=== PATIENT | male | born 1975 | race Caucasian/White ===

== ENCOUNTER 2018-08-04 08:20 | Inpatient (IN) | payer OTHER ==
[~2018-08-04] VITALS: Ht 167.6 cm; Wt 114.0 kg
[~2018-08-04 08:20] MED LIST: ACYC400 PO; CEPH500 PO; CLOM50A; CLON1; CODACE30 PO; CYCL10 PO; Cleocin HCl300 MG PO; DIAZ5 PO; DIVA250EC; DIVA250ER; DIVA500ER; DOCU100 PO; DULO30; Doxycycline Hy100 MG PO; ENAL20 PO; ESCI10; ESCI20; ESCI5; EXCEDRINE; GENT.3OPSA OD; HYDACE10B PO; HYDACE5 PO; HYDACE7.5 PO; HYDCHL25 PO; IBUP200; IBUP600 PO; IBUP800 PO; LEXAPRO; LISI20 PO; LORA1 PO; META800 PO; METO50 PO; MIRT15; NAPR220 PO; NAPR500 PO; NAPR550 PO; Naprosyn500 MG PO; OLME20 PO; OMEP10ER PO; ONDA4 PO; OXYACE10; OXYACE5T PO; OXYACE7.5T PO; POLY17UD PO; POTCHL20ER PO; PROACE100 PO; PROM25 PO; PROP80ER PO; Percocet 5-3251 EACH PO; Prednisone50 MG PO; QUET100; QUET200; QUET25; RXCODACET PO; RXHYDACE PO; RXTRAM50 PO; Robaxin-750750 MG PO; SACC250C PO; SERT25; SERT50; SULTRIDS PO; TRAM50; TRAM50 PO; Veetids 500500 MG PO; [UNRECOGNIZED DRUG - OTHER]
[2018-08-04 09:14] LABS: BASOPHILS ABSOLUTE AUTO 0.02 K/mm3 (0.00-0.23); BASOPHILS PERCENT AUTO 1 % (0-2); EOSINOPHILS ABSOLUTE AUTO 0.03 K/mm3 (0.00-0.68); EOSINOPHILS PERCENT AUTO 1 % (0-6); Hematocrit 41.7 % (37.0-53.0); Hemoglobin 14.6 g/dL (13.5-17.5); IMMATURE GRAN ABSOLUTE AUTO 0.02 K/mm3 (0.00-0.10); IMMATURE GRAN PERCENT AUTO 1 % (0-1); LYMPHOCYTES ABSOLUTE AUTO 0.27 K/mm3 (0.84-5.20); LYMPHOCYTES PERCENT AUTO 7 % (21-46); MONOCYTES ABSOLUTE AUTO 0.28 K/mm3 (0.16-1.47); MONOCYTES PERCENT AUTO 8 % (4-13); Mean Corpuscular HGB 34.2 pg (26.0-34.0); Mean Corpuscular Volume 98 fL (80-100); Mean Platelet Volume 10.3 fL (9.1-12.4); NEUTROPHILS ABSOLUTE AUTO 3.12 K/mm3 (1.96-9.15); NEUTROPHILS PERCENT AUTO 84 % (41-73); Platelet Count 146 K/mm3 (150-400); RDW Coefficient Variation 12.2 % (11.7-14.2); Red Blood Cell Count 4.27 M/mm3 (4.30-5.90); White Blood Cell Count 3.74 K/mm3 (4.00-11.30)
[2018-08-04 09:26] LABS: International Normalized Ratio 1.03; Prothrombin Time Results 10.9 Sec (9.7-11.5)
[2018-08-04 09:34] LABS: Alanine Aminotransfer (ALT/SGP 41 U/L (12-78); Albumin, Blood 4.3 g/dL (3.4-5.0); Albumin/Globulin Ratio 1.4 (0.8-1.8); Alk Phos 58 U/L (50-136); Anion Gap 7 mmol/L (6-16); Aspartate Aminotrans (AST/SGOT 35 U/L (12-37); Bilirubin, Total 0.5 mg/dL (0.1-1.0); Blood Urea Nitrogen 18 mg/dL (8-24); Bun/Creatinine Ratio 19.7 (12.0-20.0); CO2, Blood 28 mmol/L (21-32); Calcium, Blood 8.6 mg/dL (8.5-10.1); Chloride, Blood 106 mmol/L (98-108); Creatinine, Blood 0.91 mg/dL (0.60-1.20); Globulin, Blood 3.1 g/dL (2.2-4.0); Glomerular Filtration Rate >60 (60-); Glucose, Blood 98 mg/dL (70-99); Potassium, Blood 3.7 mmol/L (3.5-5.5); Sodium, Blood 141 mmol/L (136-145); Total Protein, Blood 7.4 g/dL (6.4-8.2); Troponin I 0.098 ng/mL (0.000-0.040)
[2018-08-04] MEDS ORDERED: ASPI325EC PO (12:36)
[2018-08-04 13:59] LABS: Troponin I 0.109 ng/mL (0.000-0.040)
[2018-08-04 14:00] LABS: International Normalized Ratio 1.02; Prothrombin Time Results 10.8 Sec (9.7-11.5); Thyroid Stimulating Hormone 0.94 uIU/mL (0.360-4.800)
--- NOTE | 2018-08-04 14:42 | NUR ---
PT ADMITTED PT ADMITTED AT 1320. PT IN STABLE CONDITION. PT TACHYCARDIC & HYPERTENSIVE. TEMP OF 101. DR. JITRATE NOTIFIED. LR BOLUS STARTED. PT TOLERATING WELL. PT ORIENTED TO ROOM. CALL LIGHT IN REACH. WILL CONTINUE TO MONITOR UNTIL TURNOVER IS COMPLETE.
[2018-08-04 17:44] LABS: Influenza A/2009-H1 Detected (NOT DETECT)
[2018-08-04 17:45] LABS: Adenovirus Not Detected (NOT DETECT); Bordetella pertussis Not Detected (NOT DETECT); Chlamydophila pneumoniae Not Detected (NOT DETECT); Coronavirus 229E Not Detected (NOT DETECT); Coronavirus HKU1 Not Detected (NOT DETECT); Coronavirus NL63 Not Detected (NOT DETECT); Coronavirus OC43 Not Detected (NOT DETECT); Human Metapneumovirus Not Detected (NOT DETECT); Human Rhinovirus/Enterovirus Not Detected (NOT DETECT); Influenza A Not Detected (NOT DETECT); Influenza A/H1 Not Detected (NOT DETECT); Influenza A/H3 Not Detected (NOT DETECT); Influenza B Not Detected (NOT DETECT); Mycoplasma pneumoniae Not Detected (NOT DETECT); Parainfluenza Virus 1 Not Detected (NOT DETECT); Parainfluenza Virus 2 Not Detected (NOT DETECT); Parainfluenza Virus 3 Not Detected (NOT DETECT); Parainfluenza Virus 4 Not Detected (NOT DETECT); Respiratory Syncytial Virus Not Detected (NOT DETECT)
--- NOTE | 2018-08-04 18:04 | NUR ---
SHIFT SUMMARY NO CHANGES IN ASSESSMENT AT THIS TIME. PT CONTINUES TO HAVE A HEADACHE. TREATED PER EMAR. PT ON HIS FOURTH BOLUS OF LR. TOLERATING WELL. PT HR DECREASED TO THE 110S. LOW GRADE FEVER OF REMAINS. OTHER VITALS STABLE. WILL CONTINUE TO MONITOR UNTIL TURNOVER IS COMPLETE
--- NOTE | 2018-08-04 20:08 | NUR ---
PT REPORTS HAVING THROBBING PAIN TO THE R SIDE OF HEAD, ASSOCIATED c N/T TO R SIDE OF BODY. PAIN IS 10/10, PT IS TEARFUL. PT REPORTS THESE S/SX HAVE BEEN GOING ON X2 MONTHS. 1 MG MORPHINE IV HELPS FOR ABOUT 30 MINS AND THEN PT IS TEARFUL AGAIN. PUPILS PERRLA. NO R SIDE MOTOR DEFICITS. CT OF HEAD HAS NOT BE DONE. PT IS ALSO COUGHING UP BLOOD AND HAVING EPITAXIS. CALLED HOSPITALIST TO REPORT FINDINGS. HOSPITALIST DOES NOT ORDER HEAD CT, STATES ATTENDING PHYSICIAN TO DO THAT. REPORTS HE WILL ADJUST MEDS, SEE EMAR.
--- NOTE | 2018-08-04 23:04 | NUR ---
TELE EVENT PT c MORE PVC'S AND TACHY IN THE 120s. DR AWARE. WILL CONT TO MONITOR. PT ASYMPTOMATIC AT THIS TIME.
--- NOTE | 2018-08-04 23:15 | NUR ---
UPDATE VITALS ARE 101.4, HR 119, RR 16, 170/129, 96% ON RA AFTER ADMINISITERING NAPROXEN, ACETAMINOPHEN, AND HYDRALAZINE. UPDATED BAUER ON PT STATUS. ORDERED HYDRALAZINE 10MG IV PRN Q2H FOR SYSTOLIC >160, SCHEDULED ACETAMINOPHEN Q4H, AND D/C MAINTENANCE LR. WILL CONT TO MONITOR.
--- NOTE | 2018-08-05 06:47 | NUR ---
SHIFT SUMMARY: PT HAS FELT VERY POORLY TONIGHT. C/O PAIN TO R SIDE OF HEAD, BEHIND THE EAR. RATES 10/10, TEARFUL AT TIMES. HOSPITALIST CALLED AND AWARE, ORDERED 1X DOSE OF OXYCONTIN WHICH PROVIDED RELIEF. PT HAS HAD FEVER CONSISTENTLY TONIGHT, RANGING FROM 99 - 102. TYLENOL ORDERED Q4H, SCHEDULED. FLUIDS D/C'd IN HOPES TO LOWER BP. HYDRALAZINE ADMINISTERED PRN. BP SLIGHTLY IMPROVED, THIS AM BEING AT 151/117. HAS 1 EPISODE OF EPITAXIS, RELIEVED WITH PRESSURE AND ICE PACKS. NO OTHER CHANGES TO REPORT. WILL CONT TO MONITOR AND PROVIDE CARE UNTIL PRESUMED BY ONCOMING RN.
[2018-08-05 08:13] LABS: Hematocrit 39.7 % (37.0-53.0); Hemoglobin 13.7 g/dL (13.5-17.5); Mean Corpuscular HGB 33.9 pg (26.0-34.0); Mean Corpuscular HGB Conc 34.5 g/dL (31.5-36.5); Mean Corpuscular Volume 98 fL (80-100); Mean Platelet Volume 11.2 fL (9.1-12.4); Platelet Count 118 K/mm3 (150-400); RDW Coefficient Variation 12.3 % (11.7-14.2); RDW Standard Deviation 44.6 fL (35.1-46.3); Red Blood Cell Count 4.04 M/mm3 (4.30-5.90)
[2018-08-05 08:24] LABS: Anion Gap 9 mmol/L (6-16); Blood Urea Nitrogen 11 mg/dL (8-24); Bun/Creatinine Ratio 12.2 (12.0-20.0); CO2, Blood 27 mmol/L (21-32); Calcium, Blood 8.2 mg/dL (8.5-10.1); Chloride, Blood 104 mmol/L (98-108); Glomerular Filtration Rate >60 (60-); Glucose, Blood 99 mg/dL (70-99); Potassium, Blood 3.3 mmol/L (3.5-5.5); Sodium, Blood 140 mmol/L (136-145)
[2018-08-05 08:55] LABS: BAND PERCENT MAN 3 % (0-8); BASOPHILS PERCENT MAN 0 % (0-2); EOSINOPHILS PERCENT MAN 0 % (0-6); LYMPHOCYTES ABSOLUTE MAN 0.41 K/mm3 (0.84-5.20); LYMPHOCYTES PERCENT MAN 9 % (21-46); MONOCYTES ABSOLUTE MAN 0.09 K/mm3 (0.16-1.47); MONOCYTES PERCENT MAN 2 % (4-13); NEUTROPHILS ABSOLUTE MAN 4.09 K/mm3 (1.96-9.15); SEG NEUTROPHILS PERCENT MAN 86 % (41-73); TOTAL CELLS COUNTED 100
--- NOTE | 2018-08-05 09:15 | NUR ---
PT CALLED FOR A BEEPING IV PUMP. WHEN STAFF ENTERED THE ROOM THE PT WAS RED FACED AND IN TEARS, STATED 10/10 PAIN ON THE WHOLE RIGHT SIDE OF HIS HEAD AND BODY. NO N/T CURRENTLY, NO C/O N/V. WILL MEDICATE WITH SCHEDULED TYLENOL AND NOTIFY
--- NOTE | 2018-08-05 14:37 | NUR ---
PT CHEST PAIN- PT BP WAS ELEVATED THIS MORNING ON RECHECK IT WAS HIGHER DR PICHARDO, PT MEDICATED WITH IV HYDRALIZINE, RECHECK FOR BP WAS HIGHER MEDICATED WITH PRN HYDRALIZINE. AT THE ONE HOUR RECHECK PT WAS SITTING AT THE EOB, TRAVEL ACCOMMODATION INSPECTOR VIOLETTA CALLED AND PT WAS IN BIGEMINAL PVC'S AT A RATE OF 133. FULL SET OF VITALS OBTAINED, DR RUELAS NOTIFIED, PT BEGAN DRY HEAVING, SITTING AT THE EOB, DIAPHORETIC, FLUSHED AND HOT TO TOUCH. PROVIDED COOL CLOTHS, WASHED PT FACE WITH COOL CLOTH, PT STATED HIS CHEST WAS HURTING 10/12, [facility] ARRIVED TO TAKE THE PT TO THE MANUSCRIPT EDITOR. VIEW SCORE WAS A 4 D/T ELEVATED HR AND RESP RATE OF 20. HEART CENTER RN CALLED BIOLOGICAL LAB TECHNICIAN. OK TO BRING THE PT TO THE HEART CENTER NOW. PT POTASSIUM WAS 3.3 THIS MORNING IV REPLACEMENT ORDERED PT WAS LEAVING MEDICAL FLOOR. PT WILL TRANSFER TO PCU AFTER THE HEART CENTER HAS COMPLETED PROCEDURE. PT WAS TAKEN BY HEART CENTER RNS VIA W/C PT NO LONGER DIAPHORETIC AND FLUSHING SEEMED TO BE LESSENED AT THE TIME THE PT LEFT FOR THE MANUSCRIPT EDITOR. CHEST PAIN WAS IMPROVING (PER PT) PER TELE BIGEMINAL PVCS AT 127 AT THE TIME OF PT TRANSFER TO THE WHEELCHAIR.
--- NOTE | 2018-08-05 16:00 | NUR ---
pt arrived to pcu 1 via gurney from the heart center, he has a tr band in place to [facility], site is clear. vs stable. he states he has a h/a, other rodriguez doing ok. he also reports numbness on the right side and some weakness, but is rather vague, asked him if he sought medical care, he reports coming to the ed twice. spoke with Dr. Urias, he ordered a CT scan of his head. call light in reach.
--- NOTE | 2018-08-05 16:03 | NUR ---
CALLED JAMIE YANEZ AND GAVE TELEPHONE REPORT FOR PT TRANSFER TO [facility]. PT STILL IN THE BRANCH OPERATIONS SPECIALIST, REPORT GIVEN SHE WILL CALL IF FURTHER QUESTIONS ARRISE.
--- NOTE | 2018-08-05 19:05 | NUR ---
pt went down for ct scan, medicated for pain in his head. tr band looks good. no further changes. call light in reach.
[2018-08-06 03:54] LABS: BASOPHILS ABSOLUTE AUTO 0.02 K/mm3 (0.00-0.23); BASOPHILS PERCENT AUTO 1 % (0-2); EOSINOPHILS PERCENT AUTO 0 % (0-6); Hematocrit 39.8 % (37.0-53.0); Hemoglobin 13.8 g/dL (13.5-17.5); Mean Corpuscular HGB 33.9 pg (26.0-34.0); Mean Corpuscular HGB Conc 34.7 g/dL (31.5-36.5); Mean Corpuscular Volume 98 fL (80-100); Mean Platelet Volume 10.6 fL (9.1-12.4); Platelet Count 124 K/mm3 (150-400); RDW Coefficient Variation 12.3 % (11.7-14.2); RDW Standard Deviation 44.6 fL (35.1-46.3); Red Blood Cell Count 4.07 M/mm3 (4.30-5.90)
[2018-08-06 03:57] LABS: IMMATURE GRAN ABSOLUTE AUTO 0.02 K/mm3 (0.00-0.10); IMMATURE GRAN PERCENT AUTO 1 % (0-1); LYMPHOCYTES ABSOLUTE AUTO 0.61 K/mm3 (0.84-5.20); LYMPHOCYTES PERCENT AUTO 19 % (21-46); MONOCYTES ABSOLUTE AUTO 0.16 K/mm3 (0.16-1.47); MONOCYTES PERCENT AUTO 5 % (4-13); NEUTROPHILS ABSOLUTE AUTO 2.49 K/mm3 (1.96-9.15); NEUTROPHILS PERCENT AUTO 76 % (41-73)
[2018-08-06 04:08] LABS: Anion Gap 10 mmol/L (6-16); Blood Urea Nitrogen 15 mg/dL (8-24); Bun/Creatinine Ratio 18.5 (12.0-20.0); CO2, Blood 25 mmol/L (21-32); Calcium, Blood 8.1 mg/dL (8.5-10.1); Chloride, Blood 105 mmol/L (98-108); Creatinine, Blood 0.81 mg/dL (0.60-1.20); Glomerular Filtration Rate >60 (60-); Glucose, Blood 93 mg/dL (70-99); Potassium, Blood 3.2 mmol/L (3.5-5.5); Sodium, Blood 140 mmol/L (136-145)
--- NOTE | 2018-08-06 06:32 | NUR ---
PCU NOC SHIFT SUMMARY PATIENT REMAINS ALERT AND ORIENTED X4. INDEPENDANT IN ROOM. RIGHT RADIAL SIDE RECOVERED WITH BRUISING NOTED - TEGADERM DRESSING IN PLACE AND ARM BOARD LEFT IN PLACE. PATIENT REPORTED CHRONIC ON GOING HEADACHE AND RIGHT LOWER LEG PAIN T/O SHIFT. PATIENT URINATING WELL IN TOILET (REFUSING TO USE URINAL) AND HAD NORMAL BOWEL MOVEMENT PER HIM. NO ACUTE CHANGE T/O SHIFT. PATIENT TO HAVE AORTIC VALVE REPLACEMENT UP [facility]. PATIENTS CALL LIGHT W/I REACH - DENIES ANY NEEDS AT THIS TIME. WILL CONTINUE TO MONITOR AND GIVE REPORT TO RADHA RN.
--- NOTE | 2018-08-06 08:09 | NUR ---
ASSUMEED CARE OF PT AT 0700. PT LYING IN BED WATCHING TV. PT ALERT AND ORIENTED 4X. PT STATES PAIN, NUMBNESS/TINGLING ON RIGHT SIDE WITH A R SIDED HEADACHE. STATES MEDICATION HELPS THE PAIN. PT ABLE TO SIT ON SIDE OF BED THEMSELVES. LUNG SOUNDS DIMINISHED; CRACKLES AT BASES. DENIES DYSPNEA. HEART SOUNDS IRREGUALR. IN SINUS RHYTHMN AVERAGING IN THE 80. ABDOMEN HARD AND DISTENDED. PT STATES ITS NORMAL. PERIHERAL PULSES STRONG. PT STATES THEY ARE FEELING BETTER THAN YESTERDAY BUT IS STILL HAVING PAIN. WILL CONTINUE TO MONITOR. CALL LIGHT IN REACH; BED IN LOWEST POSITION.
[2018-08-06 09:35] LABS: Vancomycin, Trough 13.5 ug/mL (5.0-10.0)
--- NOTE | 2018-08-06 13:35 | NUR ---
NURSING PCU COBRA XFER SUMMARY: No acute changes noted t/o the a.m. Seen by PMD and cardiology, discussed plan to xfer to [facility] for cardiac surgery assessment re valve replacement. Accepting doctor and bed assignment received. EMS transport scheduled for 1330, awaiting EMS arrival at this time. Pt denies any questions/needs, SN provided telephone report to accepting SN. Cont to monitor until discharge is complete.
== END 2018-08-06 13:53 | disposition short-term general hospital (02) | DRG 871 ==
LOC: ER 08:20 → MEDS 11:57 → PCU 08-05 14:12
PROVIDERS: Emergency Medicine; ADMIT Family Medicine
PROC: 4A023N7 Measurement of Cardiac Sampling and Pressure, Left Heart, Percutaneous Approach (ICD-10-PCS; principal; 2018-08-05)
PROC: B211YZZ Fluoroscopy of Multiple Coronary Arteries using Other Contrast (ICD-10-PCS; 2018-08-05)
DX: A41.9 Sepsis, unspecified organism (principal); J09.X1 Influenza due to identified novel influenza A virus with pneumonia; Z68.41 Body mass index [BMI] 40.0-44.9, adult; R65.20 Severe sepsis without septic shock; F41.8 Other specified anxiety disorders; R79.89 Other specified abnormal findings of blood chemistry; I10 Essential (primary) hypertension; E66.9 Obesity, unspecified; I35.0 Nonrheumatic aortic (valve) stenosis; E66.01 Morbid (severe) obesity due to excess calories; K59.09 Other constipation; Z85.038 Personal history of other malignant neoplasm of large intestine; I73.9 Peripheral vascular disease, unspecified
CPT/HCPCS: 36415; 70450; 71046; 71260; 80048; 80053; 80202; 83605; 84145; 84443; 84484; 85025; 85610; 85730; 86850; 86900; 86901; 87486; 87581; 87633; 87798; 93005; 93010; 93306; 93312; 93325; 93458; 93925; 93971; 96361; 96365-59; 96375-59; 99152; 99153; 99285-25; C1769; C1894; J0360; J0696; J1644; J1885; J1956; J2250; J2270; J3010; J3370; J7030; J7040; J7050; J7120; Q9967

== ENCOUNTER 2018-08-17 06:55 | Emergency (ER) | payer OTHER ==
[~2018-08-17] VITALS: Ht 175.3 cm; Wt 113.4 kg
[~2018-08-17 06:55] MED LIST changes: +ASPI325EC PO
[2018-08-17 07:47] LABS: BASOPHILS ABSOLUTE AUTO 0.04 K/mm3 (0.00-0.23); BASOPHILS PERCENT AUTO 1 % (0-2); EOSINOPHILS ABSOLUTE AUTO 0.04 K/mm3 (0.00-0.68); EOSINOPHILS PERCENT AUTO 1 % (0-6); Hemoglobin 15.7 g/dL (13.5-17.5); IMMATURE GRAN ABSOLUTE AUTO 0.01 K/mm3 (0.00-0.10); IMMATURE GRAN PERCENT AUTO 0 % (0-1); LYMPHOCYTES ABSOLUTE AUTO 1.44 K/mm3 (0.84-5.20); LYMPHOCYTES PERCENT AUTO 26 % (21-46); MONOCYTES ABSOLUTE AUTO 0.52 K/mm3 (0.16-1.47); MONOCYTES PERCENT AUTO 9 % (4-13); Mean Corpuscular HGB 33.3 pg (26.0-34.0); Mean Corpuscular HGB Conc 34.9 g/dL (31.5-36.5); Mean Corpuscular Volume 96 fL (80-100); Mean Platelet Volume 10.4 fL (9.1-12.4); NEUTROPHILS ABSOLUTE AUTO 3.57 K/mm3 (1.96-9.15); NEUTROPHILS PERCENT AUTO 64 % (41-73); Platelet Count 335 K/mm3 (150-400); RDW Coefficient Variation 11.5 % (11.7-14.2); RDW Standard Deviation 40.3 fL (35.1-46.3); Red Blood Cell Count 4.71 M/mm3 (4.30-5.90); White Blood Cell Count 5.62 K/mm3 (4.00-11.30)
[2018-08-17] MEDS ORDERED: LO-DOSE ASPIRIN81 MG PO (07:53)
[2018-08-17] MEDS ORDERED: ATOR20 PO (07:53)
[2018-08-17] MEDS ORDERED: NITR.4SL SL (07:53)
[2018-08-17] MEDS ORDERED: METO100 PO (07:53)
[2018-08-17] MEDS ORDERED: LISI20 PO (07:53)
[2018-08-17 08:03] LABS: Alanine Aminotransfer (ALT/SGP 57 U/L (12-78); Albumin, Blood 4.5 g/dL (3.4-5.0); Albumin/Globulin Ratio 1.3 (0.8-1.8); Alk Phos 70 U/L (50-136); Anion Gap 8 mmol/L (6-16); Aspartate Aminotrans (AST/SGOT 33 U/L (12-37); Bilirubin, Total 0.7 mg/dL (0.1-1.0); Blood Urea Nitrogen 16 mg/dL (8-24); Bun/Creatinine Ratio 19.3 (12.0-20.0); CO2, Blood 24 mmol/L (21-32); Calcium, Blood 9.1 mg/dL (8.5-10.1); Chloride, Blood 109 mmol/L (98-108); Creatinine, Blood 0.83 mg/dL (0.60-1.20); Globulin, Blood 3.5 g/dL (2.2-4.0); Glomerular Filtration Rate >60 (60-); Glucose, Blood 96 mg/dL (70-99); Potassium, Blood 4.3 mmol/L (3.5-5.5); Sodium, Blood 141 mmol/L (136-145); Troponin I <0.015 ng/mL (0.000-0.040)
--- NOTE | 2018-08-17 08:14 | NUR ---
PT GAVE THIS STUDENT RN PERMISSION TO CARE FOR HIM
== END 2018-08-17 09:00 | disposition home or self-care (01) ==
LOC: ER 06:55
PROVIDERS: Emergency Medicine
DX: R00.2 Palpitations (principal); R55 Syncope and collapse; R51 Headache; R10.9 Unspecified abdominal pain; R07.9 Chest pain, unspecified; F32.9 Major depressive disorder, single episode, unspecified; I10 Essential (primary) hypertension; Z88.0 Allergy status to penicillin; Z79.899 Other long term (current) drug therapy; Z79.82 Long term (current) use of aspirin
CPT/HCPCS: 36415; 71046; 80053; 84484; 85025; 93005; 93010; 99285-25

== ENCOUNTER 2019-04-17 13:30 | Emergency (ER) | payer OTHER ==
[~2019-04-17] VITALS: Ht 172.7 cm; Wt 113.4 kg
[~2019-04-17 13:30] MED LIST changes: +ATOR20 PO; +LO-DOSE ASPIRIN81 MG PO; +METO100 PO; +NITR.4SL SL
[2019-04-17] MEDS ORDERED: NAPR550 PO (16:30)
[2019-04-17] MEDS ORDERED: Ultram50 MG PO (16:38)
== END 2019-04-17 16:33 | disposition home or self-care (01) ==
LOC: ER 13:30
DX: S43.101A Unspecified dislocation of right acromioclavicular joint, initial encounter (principal); X58.XXXA Exposure to other specified factors, initial encounter; F32.9 Major depressive disorder, single episode, unspecified; I10 Essential (primary) hypertension; Z79.899 Other long term (current) drug therapy
CPT/HCPCS: 73030; 99283-25

== ENCOUNTER 2019-11-01 06:40 | Emergency (ER) | payer OTHER ==
[~2019-11-01] VITALS: Ht 165.1 cm; Wt 99.8 kg
[~2019-11-01 06:40] MED LIST changes: +DILTIAZEM 24HR240 M4 PO; +GI COCKTAIL PO; +HYDR10 PO; +LIDOCAINE PAIN1 EACH TOP; +MIRALAX17 GM PO; +PANT40 PO; +TUMS500 MG PO; +Ultram50 MG PO
[2019-11-01] MEDS ORDERED: Voltaren100 GM TOP (07:52)
== END 2019-11-01 08:00 | disposition home or self-care (01) ==
LOC: ER 06:40
DX: M25.512 Pain in left shoulder (principal); G89.29 Other chronic pain; F32.9 Major depressive disorder, single episode, unspecified; I10 Essential (primary) hypertension; F41.9 Anxiety disorder, unspecified; Z86.14 Personal history of Methicillin resistant Staphylococcus aureus infection; Z88.0 Allergy status to penicillin; Z79.899 Other long term (current) drug therapy
CPT/HCPCS: 73030; 99283-25

== ENCOUNTER 2020-04-09 00:27 | Day surgery (SDC) | payer OTHER ==
[~2020-04-09 00:27] MED LIST changes: +Voltaren100 GM TOP
--- NOTE | 2020-04-09 14:41 | NUR ---
PT DID NOT SHOW FOR APPT. UNABLE TO REACH PATIENT BY PHONE. NOTIFIED PCP OFFICE.
== END 2020-04-09 22:47 | disposition home or self-care (01) ==
LOC: ATC 00:27
DX: Z48.812 Encounter for surgical aftercare following surgery on the circulatory system (principal); I10 Essential (primary) hypertension; F41.9 Anxiety disorder, unspecified; F32.9 Major depressive disorder, single episode, unspecified; K59.09 Other constipation; E66.9 Obesity, unspecified; Z90.49 Acquired absence of other specified parts of digestive tract; Z88.0 Allergy status to penicillin; Z79.899 Other long term (current) drug therapy; Z79.01 Long term (current) use of anticoagulants; Z95.2 Presence of prosthetic heart valve

== ENCOUNTER 2020-04-12 18:37 | Emergency (ER) | payer OTHER ==
[~2020-04-12] VITALS: Ht 170.2 cm; Wt 97.5 kg
[2020-04-12 19:01] LABS: BASOPHILS ABSOLUTE AUTO 0.06 K/mm3 (0.00-0.23); BASOPHILS PERCENT AUTO 1 % (0-2); EOSINOPHILS ABSOLUTE AUTO 0.13 K/mm3 (0.00-0.68); EOSINOPHILS PERCENT AUTO 1 % (0-6); Hematocrit 32.7 % (37.0-53.0); Hemoglobin 11.2 g/dL (13.5-17.5); IMMATURE GRAN ABSOLUTE AUTO 0.06 K/mm3 (0.00-0.10); IMMATURE GRAN PERCENT AUTO 1 % (0-1); LYMPHOCYTES ABSOLUTE AUTO 2.26 K/mm3 (0.84-5.20); LYMPHOCYTES PERCENT AUTO 24 % (21-46); MONOCYTES ABSOLUTE AUTO 0.58 K/mm3 (0.16-1.47); MONOCYTES PERCENT AUTO 6 % (4-13); Mean Corpuscular HGB 32.7 pg (26.0-34.0); Mean Corpuscular HGB Conc 34.3 g/dL (31.5-36.5); Mean Corpuscular Volume 96 fL (80-100); Mean Platelet Volume 9.6 fL (9.1-12.4); NEUTROPHILS ABSOLUTE AUTO 6.33 K/mm3 (1.96-9.15); NEUTROPHILS PERCENT AUTO 67 % (41-73); Platelet Count 446 K/mm3 (150-400); RDW Coefficient Variation 11.2 % (11.7-14.2); RDW Standard Deviation 39.6 fL (35.1-46.3); Red Blood Cell Count 3.42 M/mm3 (4.30-5.90); White Blood Cell Count 9.42 K/mm3 (4.00-11.30)
[2020-04-12 19:22] LABS: Alanine Aminotransfer (ALT/SGP 41 U/L (12-78); Albumin, Blood 3.5 g/dL (3.4-5.0); Albumin/Globulin Ratio 1.1 (0.8-1.8); Alk Phos 83 U/L (50-136); Anion Gap 9 mmol/L (6-16); Aspartate Aminotrans (AST/SGOT 16 U/L (12-37); Bilirubin, Total 0.2 mg/dL (0.1-1.0); Blood Urea Nitrogen 21 mg/dL (8-24); Bun/Creatinine Ratio 17.5 (12.0-20.0); CO2, Blood 22 mmol/L (21-32); Calcium, Blood 8.9 mg/dL (8.5-10.1); Chloride, Blood 105 mmol/L (98-108); Globulin, Blood 3.2 g/dL (2.2-4.0); Glomerular Filtration Rate >60 (60-); Glucose, Blood 245 mg/dL (70-99); Potassium, Blood 3.6 mmol/L (3.5-5.5); Sodium, Blood 136 mmol/L (136-145); Total Protein, Blood 6.7 g/dL (6.4-8.2)
[2020-04-12] MEDS ORDERED: PACERONE100 M1 (19:55)
[2020-04-12] MEDS ORDERED: LOW DOSE ASPIRI81 M1 PO (19:55)
[2020-04-12] MEDS ORDERED: METOPROLOL TART50 M1 PO (19:56)
[2020-04-12] MEDS ORDERED: Dilaudid 2 mg Ta2 MG (19:56)
[2020-10-23] MEDS ORDERED: AMLO5 PO (15:51)
[2020-10-23] MEDS ORDERED: LIDOCAINE1 EAC1 TOP (15:53)
[2020-10-23] MEDS ORDERED: META800 PO (15:53)
[2020-10-23] MEDS ORDERED: ONDA4 PO (15:54)
[2020-10-23] MEDS ORDERED: TRAM50 PO (15:55)
== END 2020-04-12 22:50 | disposition home or self-care (01) ==
LOC: ER 18:37
PROVIDERS: Emergency Medicine
DX: R07.89 Other chest pain (principal); I10 Essential (primary) hypertension; Z88.0 Allergy status to penicillin; Z79.82 Long term (current) use of aspirin; Z79.899 Other long term (current) drug therapy
CPT/HCPCS: 71046; 80053; 85025; 93005; 93010; 99285-25

== ENCOUNTER 2020-04-26 04:40 | Emergency (ER) | payer OTHER ==
[~2020-04-26] VITALS: Ht 170.2 cm; Wt 97.5 kg
[~2020-04-26 04:40] MED LIST changes: +Dilaudid 2 mg Ta2 MG; +LOW DOSE ASPIRI81 M1 PO; +METOPROLOL TART50 M1 PO; +PACERONE100 M1
[2020-04-26 05:28] LABS: BASOPHILS ABSOLUTE AUTO 0.01 K/mm3 (0.00-0.23); BASOPHILS PERCENT AUTO 0 % (0-2); EOSINOPHILS ABSOLUTE AUTO 0.01 K/mm3 (0.00-0.68); EOSINOPHILS PERCENT AUTO 0 % (0-6); Hemoglobin 8.2 g/dL (13.5-17.5); IMMATURE GRAN ABSOLUTE AUTO 0.06 K/mm3 (0.00-0.10); IMMATURE GRAN PERCENT AUTO 1 % (0-1); LYMPHOCYTES ABSOLUTE AUTO 0.73 K/mm3 (0.84-5.20); LYMPHOCYTES PERCENT AUTO 8 % (21-46); MONOCYTES ABSOLUTE AUTO 0.37 K/mm3 (0.16-1.47); MONOCYTES PERCENT AUTO 4 % (4-13); Mean Corpuscular HGB 31.7 pg (26.0-34.0); Mean Corpuscular HGB Conc 32.8 g/dL (31.5-36.5); Mean Corpuscular Volume 97 fL (80-100); Mean Platelet Volume 10.3 fL (9.1-12.4); NEUTROPHILS ABSOLUTE AUTO 8.58 K/mm3 (1.96-9.15); NEUTROPHILS PERCENT AUTO 88 % (41-73); Platelet Count 370 K/mm3 (150-400); RDW Coefficient Variation 12.6 % (11.7-14.2); RDW Standard Deviation 44.3 fL (35.1-46.3); Red Blood Cell Count 2.59 M/mm3 (4.30-5.90); White Blood Cell Count 9.76 K/mm3 (4.00-11.30)
[2020-04-26 05:40] LABS: Alanine Aminotransfer (ALT/SGP 32 U/L (12-78); Albumin, Blood 3.4 g/dL (3.4-5.0); Albumin/Globulin Ratio 0.8 (0.8-1.8); Alk Phos 159 U/L (50-136); Anion Gap 10 mmol/L (6-16); Aspartate Aminotrans (AST/SGOT 21 U/L (12-37); Bilirubin, Total 0.8 mg/dL (0.1-1.0); Blood Urea Nitrogen 18 mg/dL (8-24); Bun/Creatinine Ratio 20.1 (12.0-20.0); CO2, Blood 21 mmol/L (21-32); Calcium, Blood 9.1 mg/dL (8.5-10.1); Chloride, Blood 110 mmol/L (98-108); Globulin, Blood 4.4 g/dL (2.2-4.0); Glomerular Filtration Rate >60 (60-); Glucose, Blood 174 mg/dL (70-99); Potassium, Blood 3.3 mmol/L (3.5-5.5); Sodium, Blood 141 mmol/L (136-145); Total Protein, Blood 7.8 g/dL (6.4-8.2)
[2020-04-26] MEDS ORDERED: ZEBUTAL 50-3251 EAC1 PO (06:43)
[2020-10-23] MEDS ORDERED: AMLO5 PO (15:51)
[2020-10-23] MEDS ORDERED: META800 PO (15:53)
[2020-10-23] MEDS ORDERED: LIDOCAINE1 EAC1 TOP (15:53)
[2020-10-23] MEDS ORDERED: ONDA4 PO (15:54)
[2020-10-23] MEDS ORDERED: TRAM50 PO (15:55)
== END 2020-04-26 06:58 | disposition home or self-care (01) ==
LOC: ER 04:40
PROVIDERS: Emergency Medicine
DX: R51.9 Headache, unspecified (principal); K59.00 Constipation, unspecified; I10 Essential (primary) hypertension; Z88.0 Allergy status to penicillin; Z79.82 Long term (current) use of aspirin; Z79.899 Other long term (current) drug therapy
CPT/HCPCS: 80053; 83690; 85025; 93005; 93010; 96374; 96375; 99284-25; A9270; J2405; J2550; J3010; J7030

== ENCOUNTER 2020-10-19 00:54 | Day surgery (SDC) | payer OTHER | END 2020-10-19 22:41 | disposition home or self-care (01) | LOC: ATC 00:54 | DX: R07.9 Chest pain, unspecified (principal); G89.29 Other chronic pain; I10 Essential (primary) hypertension; R79.1 Abnormal coagulation profile; R51.9 Headache, unspecified; Z95.2 Presence of prosthetic heart valve; Z79.01 Long term (current) use of anticoagulants; Z88.0 Allergy status to penicillin; F43.23 Adjustment disorder with mixed anxiety and depressed mood; E66.9 Obesity, unspecified; Z68.35 Body mass index [BMI] 35.0-35.9, adult; Z59.0 Homelessness; Z87.74 Personal history of (corrected) congenital malformations of heart and circulatory system ==

== ENCOUNTER 2020-10-20 10:13 | Day surgery (SDC) | payer OTHER ==
[~2020-10-20 10:13] MED LIST changes: +ZEBUTAL 50-3251 EAC1 PO
[2020-10-20] MEDS ORDERED: ACET325 PO (15:23)
[2020-10-20] MEDS ORDERED: TRAM50 PO (15:24)
[2020-10-20] MEDS ORDERED: MULVITA PO (15:24)
[2020-10-20] MEDS ORDERED: PANT20 PO (15:24)
[2020-10-20] MEDS ORDERED: WARF4 PO (15:24)
--- NOTE | 2020-10-20 15:25 | NUR ---
PT ARRIVED TODAY WITH HIGH BP AND HR WITH SYMPTOMS OF HEADACHE, NAUSEA, VOMITTING, FATIGUE, AND A GENERAL UNWELL FEELING. FINGERSTICK INR DONE TODAY AND READ 2.2. REVIEWED MD ORDERS AND INR RESULTS WITH NURSING BENCH WORKER APPRENTICE. LOVENOX HELD TODAY. PT TO RETURN FOR INR CHECK TOMORROW. REPEAT BP HR CHECK AT DISCHARGE REMAINED ELEVATED. PT ESCORTED TO ER FOR EVALUATION. PT REPORTS NOT CURRENTLY TAKING ANY BP MEDICATIONS, BUT THAT HE DID IN THE PAST. PT REPORTS HAVING AN APPOINTMENT WITH A NEW PCP ON WEDNESDAY, PT DOES NOT KNOW PCP'S NAME BUT PLANS TO HAVE MEDICATIONS REVIEWED AT THAT APPOINTMENT.
== END 2020-10-20 15:18 | disposition home or self-care (01) ==
LOC: ATC 10:13
DX: I35.0 Nonrheumatic aortic (valve) stenosis (principal); I10 Essential (primary) hypertension; F43.23 Adjustment disorder with mixed anxiety and depressed mood; E66.9 Obesity, unspecified; Z68.35 Body mass index [BMI] 35.0-35.9, adult; Z95.2 Presence of prosthetic heart valve; Z88.0 Allergy status to penicillin; Z79.01 Long term (current) use of anticoagulants
CPT/HCPCS: 36416; 85610; 99211; J1650

== ENCOUNTER 2020-10-20 15:17 | Emergency (ER) | payer OTHER ==
[~2020-10-20] VITALS: Ht 167.6 cm; Wt 101.6 kg
[2020-10-20] MEDS ORDERED: ACET325 PO ×2 (15:23)
[2020-10-20] MEDS ORDERED: WARF4 PO ×2 (15:24)
[2020-10-20] MEDS ORDERED: PANT20 PO (15:24)
[2020-10-20] MEDS ORDERED: TRAM50 PO (15:24)
[2020-10-20] MEDS ORDERED: MULVITA PO ×2 (15:24)
[2020-10-20 16:01] LABS: BASOPHILS ABSOLUTE AUTO 0.05 K/mm3 (0.00-0.23); BASOPHILS PERCENT AUTO 1 % (0-2); EOSINOPHILS ABSOLUTE AUTO 0.06 K/mm3 (0.00-0.68); EOSINOPHILS PERCENT AUTO 1 % (0-6); Hematocrit 49.7 % (37.0-53.0); Hemoglobin 17.8 g/dL (13.5-17.5); IMMATURE GRAN ABSOLUTE AUTO 0.03 K/mm3 (0.00-0.10); IMMATURE GRAN PERCENT AUTO 0 % (0-1); LYMPHOCYTES ABSOLUTE AUTO 1.77 K/mm3 (0.84-5.20); LYMPHOCYTES PERCENT AUTO 20 % (21-46); MONOCYTES ABSOLUTE AUTO 0.97 K/mm3 (0.16-1.47); MONOCYTES PERCENT AUTO 11 % (4-13); Mean Corpuscular HGB 33.1 pg (26.0-34.0); Mean Corpuscular HGB Conc 35.8 g/dL (31.5-36.5); Mean Corpuscular Volume 93 fL (80-100); Mean Platelet Volume 10.7 fL (9.1-12.4); NEUTROPHILS ABSOLUTE AUTO 5.89 K/mm3 (1.96-9.15); NEUTROPHILS PERCENT AUTO 67 % (41-73); Platelet Count 297 K/mm3 (150-400); RDW Coefficient Variation 12.2 % (11.7-14.2); RDW Standard Deviation 41.7 fL (35.1-46.3); Red Blood Cell Count 5.37 M/mm3 (4.30-5.90); White Blood Cell Count 8.77 K/mm3 (4.00-11.30)
[2020-10-20 16:14] LABS: International Normalized Ratio 2.28; Prothrombin Time Results 23.5 Sec (9.7-11.5)
[2020-10-20 16:21] LABS: Alanine Aminotransfer (ALT/SGP 91 U/L (12-78); Albumin, Blood 4.6 g/dL (3.4-5.0); Albumin/Globulin Ratio 1.1 (0.8-1.8); Alk Phos 76 U/L (50-136); Anion Gap 10 mmol/L (6-16); Aspartate Aminotrans (AST/SGOT 47 U/L (12-37); Bilirubin, Total 0.3 mg/dL (0.1-1.0); Blood Urea Nitrogen 21 mg/dL (8-24); Bun/Creatinine Ratio 16.7 (12.0-20.0); CO2, Blood 21 mmol/L (21-32); Calcium, Blood 9.3 mg/dL (8.5-10.1); Chloride, Blood 106 mmol/L (98-108); Creatinine, Blood 1.26 mg/dL (0.60-1.20); Globulin, Blood 4.1 g/dL (2.2-4.0); Glomerular Filtration Rate >60 (60-); Glucose, Blood 131 mg/dL (70-99); Potassium, Blood 3.5 mmol/L (3.5-5.5); Sodium, Blood 137 mmol/L (136-145); Total Protein, Blood 8.7 g/dL (6.4-8.2); Troponin I <0.015 ng/mL (0.000-0.040)
== END 2020-10-20 17:43 | disposition home or self-care (01) ==
LOC: ER 15:17
PROVIDERS: Emergency Medicine; Physician Assistant
DX: I10 Essential (primary) hypertension (principal); Z79.899 Other long term (current) drug therapy; Z79.01 Long term (current) use of anticoagulants; Z88.0 Allergy status to penicillin
CPT/HCPCS: 36415; 71045; 80053; 84484; 85025; 85610; 93005; 93010; 96374; 96375; 99285-25; J2405; J3010

== ENCOUNTER 2020-10-21 14:03 | Day surgery (SDC) | payer OTHER ==
[~2020-10-21 14:03] MED LIST changes: +ACET325 PO; +MULVITA PO; +PANT20 PO; +WARF4 PO
--- NOTE | 2020-10-21 15:47 | NUR ---
PT NOT GIVEN LOVENOX INR 2.6
== END 2020-10-21 14:29 | disposition home or self-care (01) ==
LOC: ATC 14:03
DX: R07.9 Chest pain, unspecified (principal); R79.1 Abnormal coagulation profile; R51.9 Headache, unspecified; G89.29 Other chronic pain; I10 Essential (primary) hypertension; I48.91 Unspecified atrial fibrillation; E66.9 Obesity, unspecified; Z95.2 Presence of prosthetic heart valve; Z87.74 Personal history of (corrected) congenital malformations of heart and circulatory system; Z68.35 Body mass index [BMI] 35.0-35.9, adult; Z88.0 Allergy status to penicillin; Z79.01 Long term (current) use of anticoagulants
CPT/HCPCS: 85610

== ENCOUNTER 2020-10-21 18:33 | Observation (INO) | payer OTHER ==
[~2020-10-21] VITALS: Ht 167.6 cm; Wt 100.2 kg
[2020-10-21 19:17] LABS: BASOPHILS ABSOLUTE AUTO 0.04 K/mm3 (0.00-0.23); BASOPHILS PERCENT AUTO 0 % (0-2); EOSINOPHILS ABSOLUTE AUTO 0.02 K/mm3 (0.00-0.68); EOSINOPHILS PERCENT AUTO 0 % (0-6); Hematocrit 45.6 % (37.0-53.0); Hemoglobin 16.8 g/dL (13.5-17.5); IMMATURE GRAN ABSOLUTE AUTO 0.06 K/mm3 (0.00-0.10); IMMATURE GRAN PERCENT AUTO 0 % (0-1); LYMPHOCYTES PERCENT AUTO 7 % (21-46); MONOCYTES ABSOLUTE AUTO 1.45 K/mm3 (0.16-1.47); MONOCYTES PERCENT AUTO 9 % (4-13); Mean Corpuscular HGB 33.5 pg (26.0-34.0); Mean Corpuscular HGB Conc 36.8 g/dL (31.5-36.5); Mean Corpuscular Volume 91 fL (80-100); Mean Platelet Volume 10.6 fL (9.1-12.4); NEUTROPHILS ABSOLUTE AUTO 13.58 K/mm3 (1.96-9.15); NEUTROPHILS PERCENT AUTO 83 % (41-73); Platelet Count 308 K/mm3 (150-400); RDW Coefficient Variation 12.3 % (11.7-14.2); RDW Standard Deviation 41.1 fL (35.1-46.3); Red Blood Cell Count 5.01 M/mm3 (4.30-5.90); White Blood Cell Count 16.35 K/mm3 (4.00-11.30)
[2020-10-21 19:42] LABS: Alanine Aminotransfer (ALT/SGP 74 U/L (12-78); Albumin, Blood 4.6 g/dL (3.4-5.0); Albumin/Globulin Ratio 1.2 (0.8-1.8); Alk Phos 71 U/L (50-136); Anion Gap 12 mmol/L (6-16); Aspartate Aminotrans (AST/SGOT 30 U/L (12-37); Bilirubin, Total 0.5 mg/dL (0.1-1.0); Blood Urea Nitrogen 28 mg/dL (8-24); Bun/Creatinine Ratio 10.8 (12.0-20.0); CO2, Blood 22 mmol/L (21-32); Calcium, Blood 9.6 mg/dL (8.5-10.1); Chloride, Blood 102 mmol/L (98-108); Globulin, Blood 3.8 g/dL (2.2-4.0); Glomerular Filtration Rate 27 (60-); Glucose, Blood 119 mg/dL (70-99); Potassium, Blood 3.1 mmol/L (3.5-5.5); Sodium, Blood 136 mmol/L (136-145); Total Protein, Blood 8.4 g/dL (6.4-8.2); Troponin I <0.015 ng/mL (0.000-0.040)
[2020-10-22 00:58] LABS: Source, Urine Catheter
[2020-10-22 01:03] LABS: Appearance, Urine Hazy (Clear); Blood, Urine 2+ (Neg); Color, Urine Yellow (P-Yellow); Glucose Qualitative, Urine Neg (Neg); Ketones, Urine Neg (Neg); Leukocyte Esterase, Urine 2+ (Neg); Nitrite, Urine Neg (Neg); Protein, Urine 3+ (Neg); Urobilinogen, Urine NORM (Normal)
[2020-10-22 01:05] LABS: Bilirubin, Urine 1+ (Neg)
[2020-10-22 01:10] LABS: Bacteria Mod /hpf; Red Blood Cells, Urine 0-2 /hpf (0-2); Squamous Epithelial Cells Few /hpf (Few)
[2020-10-22 01:11] LABS: Amorphous Light (0-Heavy); Mucus Mod (0-Heavy)
[2020-10-22 01:12] LABS: Calcium Oxalate Crystals Few /hpf
[2020-10-22 01:30] LABS: Bun/Creatinine Ratio 11.4 (12.0-20.0); Creatinine, Blood 2.54 mg/dL (0.60-1.20); Potassium, Blood 2.7 mmol/L (3.5-5.5)
[2020-10-22 01:33] LABS: Calcium, Blood 7.2 mg/dL (8.5-10.1)
[2020-10-22 06:06] LABS: BASOPHILS ABSOLUTE AUTO 0.04 K/mm3 (0.00-0.23); BASOPHILS PERCENT AUTO 1 % (0-2); EOSINOPHILS ABSOLUTE AUTO 0.06 K/mm3 (0.00-0.68); EOSINOPHILS PERCENT AUTO 1 % (0-6); Hematocrit 38.9 % (37.0-53.0); Hemoglobin 13.8 g/dL (13.5-17.5); IMMATURE GRAN ABSOLUTE AUTO 0.01 K/mm3 (0.00-0.10); IMMATURE GRAN PERCENT AUTO 0 % (0-1); LYMPHOCYTES ABSOLUTE AUTO 1.94 K/mm3 (0.84-5.20); LYMPHOCYTES PERCENT AUTO 29 % (21-46); MONOCYTES ABSOLUTE AUTO 0.79 K/mm3 (0.16-1.47); MONOCYTES PERCENT AUTO 12 % (4-13); Mean Corpuscular HGB 33.1 pg (26.0-34.0); Mean Corpuscular HGB Conc 35.5 g/dL (31.5-36.5); Mean Corpuscular Volume 93 fL (80-100); Mean Platelet Volume 10.2 fL (9.1-12.4); NEUTROPHILS ABSOLUTE AUTO 3.89 K/mm3 (1.96-9.15); NEUTROPHILS PERCENT AUTO 58 % (41-73); Platelet Count 224 K/mm3 (150-400); RDW Coefficient Variation 12.4 % (11.7-14.2); RDW Standard Deviation 42.8 fL (35.1-46.3); Red Blood Cell Count 4.17 M/mm3 (4.30-5.90); White Blood Cell Count 6.73 K/mm3 (4.00-11.30)
[2020-10-22 06:26] LABS: International Normalized Ratio 2.82; Prothrombin Time Results 28.7 Sec (9.7-11.5)
[2020-10-22 06:36] LABS: Bun/Creatinine Ratio 12.7 (12.0-20.0); Creatinine, Blood 2.67 mg/dL (0.60-1.20); Magnesium, Blood 1.8 mg/dL (1.6-2.4); Potassium, Blood 3.2 mmol/L (3.5-5.5)
--- NOTE | 2020-10-22 17:12 | NUR ---
1630 RECEIVED PT TO RM 304 VIA GURNEY FROM ER. A&O, ABLE TO TX SELF TO BED WITH SBA. RECEIVED REPORT FROM CHAVA AYALA. PT ADMITTED FOR SPIKE. PT TO ER R/T NV, DIZZINESS AND HYPOTENSION. PT REPORTED THAT NORMALLY HE HAS HTN. STATED THAT HE WENT TO [facility] FOR INR CHECK AND FOUND SBP DOWN IN THE 70'S. C/O CHRONIC M[place]OUGH R/T NECK INJURY. PT RECEIVING ULTRAM PO. PER CHAVA AYALA, PT ALSO RECEIVED ROCEPHIN FOR POSSIBLE UTI. PT INDEPENDENT IN RM. SL AT THIS TIME; RECEIVED 2L NS IN ER. A-FIB @ 100, PER TELE MX @ 7143. DENIED FURTHER NEEDS. CALL LT IN REACH.
[2020-10-22 18:32] LABS: U Amphetamine Screen Not Detected; U Barbituate Screen Not Detected; U Benzodiazapine Screen DETECTED; U Buprenorphine Screen Not Detected; U Cannabinoids Screen DETECTED; U Cocaine Screen Not Detected; U Methadone Screen Not Detected; U Methamphetamine Screen Not Detected; U Opiates Screen Not Detected; U Oxycodone Screen Not Detected; U Phencyclidine Screen Not Detected; U Propoxyphene Screen Not Detected
--- NOTE | 2020-10-23 04:40 | NUR ---
SUMMARY PT CONTINUES TO COMPLAIN OF HEADACHE, CX DISCOMFORT AND NECK PAIN. PT TX PER EMAR W/ SOME RELIEF. DR LYON CALLED AND ORDERED A OT ULTRAM DUE TO NOT BEING DUE. PT IS AWAKE THIS AM COMPLAINING OF DISCOMFORT. PT CALL LIGHT IN REACH AND BED ALARM ON
[2020-10-23 04:57] LABS: BASOPHILS ABSOLUTE AUTO 0.03 K/mm3 (0.00-0.23); BASOPHILS PERCENT AUTO 1 % (0-2); EOSINOPHILS ABSOLUTE AUTO 0.07 K/mm3 (0.00-0.68); EOSINOPHILS PERCENT AUTO 1 % (0-6); Hematocrit 40.6 % (37.0-53.0); Hemoglobin 14.6 g/dL (13.5-17.5); IMMATURE GRAN ABSOLUTE AUTO 0.01 K/mm3 (0.00-0.10); IMMATURE GRAN PERCENT AUTO 0 % (0-1); LYMPHOCYTES ABSOLUTE AUTO 1.58 K/mm3 (0.84-5.20); LYMPHOCYTES PERCENT AUTO 32 % (21-46); MONOCYTES ABSOLUTE AUTO 0.61 K/mm3 (0.16-1.47); MONOCYTES PERCENT AUTO 12 % (4-13); Mean Corpuscular HGB 32.9 pg (26.0-34.0); Mean Corpuscular Volume 91 fL (80-100); Mean Platelet Volume 10.7 fL (9.1-12.4); NEUTROPHILS ABSOLUTE AUTO 2.69 K/mm3 (1.96-9.15); NEUTROPHILS PERCENT AUTO 54 % (41-73); Platelet Count 183 K/mm3 (150-400); RDW Coefficient Variation 11.8 % (11.7-14.2); RDW Standard Deviation 39.8 fL (35.1-46.3); Red Blood Cell Count 4.44 M/mm3 (4.30-5.90); White Blood Cell Count 4.99 K/mm3 (4.00-11.30)
[2020-10-23 05:11] LABS: International Normalized Ratio 2.02
[2020-10-23 05:16] LABS: Albumin, Blood 3.8 g/dL (3.4-5.0); Anion Gap 7 mmol/L (6-16); Blood Urea Nitrogen 20 mg/dL (8-24); Bun/Creatinine Ratio 17.1 (12.0-20.0); CO2, Blood 26 mmol/L (21-32); Calcium, Blood 8.8 mg/dL (8.5-10.1); Chloride, Blood 105 mmol/L (98-108); Creatinine, Blood 1.17 mg/dL (0.60-1.20); Glomerular Filtration Rate >60 (60-); Glucose, Blood 92 mg/dL (70-99); Phosphorus, Blood 2.6 mg/dL (2.5-4.9); Potassium, Blood 2.7 mmol/L (3.5-5.5); Sodium, Blood 138 mmol/L (136-145)
[2020-10-23] MEDS ORDERED: AMLO5 PO ×2 (15:51)
[2020-10-23] MEDS ORDERED: LIDOCAINE1 EAC1 TOP ×2 (15:53)
[2020-10-23] MEDS ORDERED: META800 PO ×2 (15:53)
[2020-10-23] MEDS ORDERED: ONDA4 PO ×2 (15:54)
[2020-10-23] MEDS ORDERED: TRAM50 PO ×2 (15:55)
--- NOTE | 2020-10-23 16:31 | NUR ---
PT DISCHARGED THE PT VERBALIZED AN UNDERSTANDING OF THE DC INSTRUCTIONS, THE PT WAS GIVEN A WRITTEN PRESCRIPTION FOR TRAMADOL AND ALL OTHER PRESCRIPTIONS WERE FAXED TO [facility] REQUESTED. AN APPOINTMENT WAS SCHEDULED WITH HIS PCP PRIOR TO DISCHARGE, THE PT WAS TRANSFERED VIA WHEELCHAIR ACCOMPANIED BY THIS RN TO THE FRONT. THE PT APPEARED TO BE BREATHING EASILY. PT IS A/GRAYSON
== END 2020-10-23 16:30 | disposition home or self-care (01) ==
LOC: ER 18:33 → ERHOLD 18:34 → ER 10-22 01:43 → ERHOLD 10-22 01:43 → MEDS 10-22 16:13
PROVIDERS: Internal Medicine; Physician Assistant; Student in an Organized Health Care Education/Training Program; ADMIT Internal Medicine
DX: N17.9 Acute kidney failure, unspecified (principal); E86.0 Dehydration; E87.6 Hypokalemia; I95.9 Hypotension, unspecified; D72.829 Elevated white blood cell count, unspecified; I10 Essential (primary) hypertension; E87.1 Hypo-osmolality and hyponatremia; M54.2 Cervicalgia; R51.9 Headache, unspecified; Z79.01 Long term (current) use of anticoagulants; Z95.2 Presence of prosthetic heart valve; Z86.73 Personal history of transient ischemic attack (TIA), and cerebral infarction without residual deficits
CPT/HCPCS: 36415; 71045; 76770; 80048; 80053; 80069; 81001; 83690; 83735; 84100; 84484; 85025; 85610; 87086; 93005; 93010; 96365; 96374; 96375; 96376; 97165; 99285-25; A9270; G0378; J0696; J1885; J2765; J3010; J3480; J7030

== ENCOUNTER 2020-11-03 17:21 | Emergency (ER) | payer OTHER ==
[~2020-11-03] VITALS: Ht 167.6 cm; Wt 101.6 kg
[~2020-11-03 17:21] MED LIST changes: +AMLO5 PO; +LIDOCAINE1 EAC1 TOP
[2020-11-03 18:23] LABS: BASOPHILS ABSOLUTE AUTO 0.04 K/mm3 (0.00-0.23); BASOPHILS PERCENT AUTO 0 % (0-2); EOSINOPHILS ABSOLUTE AUTO 0.14 K/mm3 (0.00-0.68); EOSINOPHILS PERCENT AUTO 1 % (0-6); Hematocrit 38.8 % (37.0-53.0); Hemoglobin 13.8 g/dL (13.5-17.5); IMMATURE GRAN ABSOLUTE AUTO 0.03 K/mm3 (0.00-0.10); IMMATURE GRAN PERCENT AUTO 0 % (0-1); LYMPHOCYTES ABSOLUTE AUTO 1.49 K/mm3 (0.84-5.20); LYMPHOCYTES PERCENT AUTO 14 % (21-46); MONOCYTES ABSOLUTE AUTO 0.75 K/mm3 (0.16-1.47); MONOCYTES PERCENT AUTO 7 % (4-13); Mean Corpuscular HGB 33.3 pg (26.0-34.0); Mean Corpuscular HGB Conc 35.6 g/dL (31.5-36.5); Mean Corpuscular Volume 94 fL (80-100); Mean Platelet Volume 10.6 fL (9.1-12.4); NEUTROPHILS ABSOLUTE AUTO 7.94 K/mm3 (1.96-9.15); NEUTROPHILS PERCENT AUTO 77 % (41-73); Platelet Count 238 K/mm3 (150-400); RDW Coefficient Variation 12.7 % (11.7-14.2); Red Blood Cell Count 4.14 M/mm3 (4.30-5.90); White Blood Cell Count 10.39 K/mm3 (4.00-11.30)
[2020-11-03 18:39] LABS: Source, Urine Clean Catch
[2020-11-03 18:43] LABS: Alanine Aminotransfer (ALT/SGP 52 U/L (12-78); Albumin, Blood 3.6 g/dL (3.4-5.0); Albumin/Globulin Ratio 0.9 (0.8-1.8); Alk Phos 68 U/L (50-136); Anion Gap 6 mmol/L (6-16); Aspartate Aminotrans (AST/SGOT 37 U/L (12-37); Bilirubin, Total 0.3 mg/dL (0.1-1.0); Blood Urea Nitrogen 19 mg/dL (8-24); Bun/Creatinine Ratio 21.9 (12.0-20.0); CO2, Blood 26 mmol/L (21-32); Calcium, Blood 9.1 mg/dL (8.5-10.1); Chloride, Blood 106 mmol/L (98-108); Creatinine, Blood 0.87 mg/dL (0.60-1.20); Globulin, Blood 3.8 g/dL (2.2-4.0); Glomerular Filtration Rate >60 (60-); Glucose, Blood 112 mg/dL (70-99); Sodium, Blood 138 mmol/L (136-145); Total Protein, Blood 7.4 g/dL (6.4-8.2); Troponin I <0.015 ng/mL (0.000-0.040)
[2020-11-03 18:52] LABS: Appearance, Urine Clear (Clear); Bilirubin, Urine Neg (Neg); Blood, Urine 4+ (Neg); Color, Urine Yellow (P-Yellow); Glucose Qualitative, Urine Neg (Neg); Ketones, Urine Neg (Neg); Leukocyte Esterase, Urine Neg (Neg); Nitrite, Urine Neg (Neg); Protein, Urine Neg (Neg); Specific Gravity, Urine 1.015 (1.003-1.022); Urobilinogen, Urine NORM (Normal)
[2020-11-03 19:02] LABS: Bacteria Mod /hpf; Red Blood Cells, Urine 25-50 /hpf (0-2); Squamous Epithelial Cells Rare /hpf (Few); White Blood Cells, Urine 0-2 /hpf (0-5)
[2020-11-03 19:27] LABS: International Normalized Ratio 1.55; Prothrombin Time Results 16.3 Sec (9.7-11.5)
== END 2020-11-03 23:02 | disposition home or self-care (01) ==
LOC: ER 17:21
PROVIDERS: Emergency Medicine; Physician Assistant
DX: R31.9 Hematuria, unspecified (principal); Z79.01 Long term (current) use of anticoagulants; Z79.899 Other long term (current) drug therapy
CPT/HCPCS: 36415; 70450; 71046; 74176; 80053; 81001; 83690; 83880; 84484; 85025; 85610; 87086; 93005; 93010; 96365; 99284-25; A9270; J0696

== ENCOUNTER 2021-04-01 13:44 | Emergency (ER) | payer OTHER ==
[~2021-04-01] VITALS: Ht 162.6 cm; Wt 99.8 kg
[2021-04-01] MEDS ORDERED: QUET300 PO (15:34)
[2021-04-01 15:49] LABS: Source, Urine Clean Catch
[2021-04-01 15:52] LABS: BASOPHILS ABSOLUTE AUTO 0.02 K/mm3 (0.00-0.23); BASOPHILS PERCENT AUTO 0 % (0-2); EOSINOPHILS ABSOLUTE AUTO 0.04 K/mm3 (0.00-0.68); EOSINOPHILS PERCENT AUTO 1 % (0-6); Hemoglobin 12.7 g/dL (13.5-17.5); IMMATURE GRAN ABSOLUTE AUTO 0.02 K/mm3 (0.00-0.10); IMMATURE GRAN PERCENT AUTO 0 % (0-1); LYMPHOCYTES ABSOLUTE AUTO 0.45 K/mm3 (0.84-5.20); LYMPHOCYTES PERCENT AUTO 7 % (21-46); MONOCYTES ABSOLUTE AUTO 0.59 K/mm3 (0.16-1.47); MONOCYTES PERCENT AUTO 9 % (4-13); Mean Corpuscular HGB 33.4 pg (26.0-34.0); Mean Corpuscular HGB Conc 35.3 g/dL (31.5-36.5); Mean Corpuscular Volume 95 fL (80-100); NEUTROPHILS ABSOLUTE AUTO 5.34 K/mm3 (1.96-9.15); NEUTROPHILS PERCENT AUTO 83 % (41-73); Platelet Count 182 K/mm3 (150-400); RDW Coefficient Variation 13.2 % (11.7-14.2); RDW Standard Deviation 44.6 fL (35.1-46.3); White Blood Cell Count 6.46 K/mm3 (4.00-11.30)
[2021-04-01 15:57] LABS: Appearance, Urine Hazy (Clear); Blood, Urine 5+ (Neg); Color, Urine Amber (P-Yellow); Glucose Qualitative, Urine Neg (Neg); Ketones, Urine Neg (Neg); Leukocyte Esterase, Urine 2+ (Neg); Nitrite, Urine Neg (Neg); Protein, Urine 2+ (Neg); Urobilinogen, Urine 1+ (Normal)
[2021-04-01 16:03] LABS: Bilirubin, Urine 1+ (Neg)
[2021-04-01 16:05] LABS: Bacteria Mod /hpf; Red Blood Cells, Urine 50-100 /hpf (0-2); Squamous Epithelial Cells Rare /hpf (Few)
[2021-04-01 16:06] LABS: Amorphous Light (0-Heavy); Mucus Light (0-Heavy)
[2021-04-01 16:17] LABS: Acetaminophen, Random 7.6 ug/mL (10.0-30.0); Alanine Aminotransfer (ALT/SGP 34 U/L (12-78); Albumin, Blood 3.5 g/dL (3.4-5.0); Albumin/Globulin Ratio 1.1 (0.8-1.8); Alk Phos 61 U/L (50-136); Anion Gap 7 mmol/L (6-16); Aspartate Aminotrans (AST/SGOT 20 U/L (12-37); Bilirubin, Total 0.6 mg/dL (0.1-1.0); Blood Urea Nitrogen 21 mg/dL (8-24); Bun/Creatinine Ratio 19.8 (12.0-20.0); CO2, Blood 19 mmol/L (21-32); Calcium, Blood 8.3 mg/dL (8.5-10.1); Chloride, Blood 114 mmol/L (98-108); Creatinine, Blood 1.06 mg/dL (0.60-1.20); Ethanol (Alcohol), Blood, Med <3 mg/dL; Globulin, Blood 3.3 g/dL (2.2-4.0); Glomerular Filtration Rate >60 (60-); Glucose, Blood 109 mg/dL (70-99); Potassium, Blood 3.7 mmol/L (3.5-5.5); Salicylate 15.2 mg/dL (2.8-20.0); Sodium, Blood 140 mmol/L (136-145); Total Protein, Blood 6.8 g/dL (6.4-8.2)
[2021-04-01] MEDS ORDERED: AMOCLA875 PO (17:05)
[2021-07-02] MEDS ORDERED: ONDA4ODT MM (15:32)
== END 2021-04-01 17:33 | disposition home or self-care (01) ==
LOC: ER 13:44
PROVIDERS: Physician Assistant
DX: F32.A Depression, unspecified (principal); K04.7 Periapical abscess without sinus; K02.9 Dental caries, unspecified; Z88.0 Allergy status to penicillin; Z79.899 Other long term (current) drug therapy; Z79.01 Long term (current) use of anticoagulants; I10 Essential (primary) hypertension
CPT/HCPCS: 36415; 64400; 80053; 81001; 83690; 85025; 87086; 99283-25; A9270; G0480

== ENCOUNTER 2021-04-22 08:04 | Emergency (ER) | payer OTHER ==
[~2021-04-22] VITALS: Ht 160 cm; Wt 108.9 kg
[~2021-04-22 08:04] MED LIST changes: +AMOCLA875 PO; +QUET300 PO
[2021-04-22 09:12] LABS: BASOPHILS ABSOLUTE AUTO 0.03 K/mm3 (0.00-0.23); BASOPHILS PERCENT AUTO 1 % (0-2); EOSINOPHILS ABSOLUTE AUTO 0.05 K/mm3 (0.00-0.68); EOSINOPHILS PERCENT AUTO 1 % (0-6); Hematocrit 42.8 % (37.0-53.0); Hemoglobin 15.4 g/dL (13.5-17.5); IMMATURE GRAN ABSOLUTE AUTO 0.01 K/mm3 (0.00-0.10); IMMATURE GRAN PERCENT AUTO 0 % (0-1); LYMPHOCYTES ABSOLUTE AUTO 0.84 K/mm3 (0.84-5.20); LYMPHOCYTES PERCENT AUTO 13 % (21-46); MONOCYTES ABSOLUTE AUTO 0.44 K/mm3 (0.16-1.47); MONOCYTES PERCENT AUTO 7 % (4-13); Mean Corpuscular HGB 33.4 pg (26.0-34.0); Mean Corpuscular Volume 93 fL (80-100); Mean Platelet Volume 10.1 fL (9.1-12.4); NEUTROPHILS PERCENT AUTO 78 % (41-73); Platelet Count 240 K/mm3 (150-400); RDW Coefficient Variation 12.6 % (11.7-14.2); RDW Standard Deviation 43.3 fL (35.1-46.3); Red Blood Cell Count 4.61 M/mm3 (4.30-5.90); White Blood Cell Count 6.27 K/mm3 (4.00-11.30)
[2021-04-22 09:31] LABS: Alanine Aminotransfer (ALT/SGP 57 U/L (12-78); Albumin, Blood 4.3 g/dL (3.4-5.0); Albumin/Globulin Ratio 1.3 (0.8-1.8); Alk Phos 68 U/L (50-136); Anion Gap 9 mmol/L (6-16); Aspartate Aminotrans (AST/SGOT 32 U/L (12-37); Bilirubin, Total 0.6 mg/dL (0.1-1.0); Blood Urea Nitrogen 17 mg/dL (8-24); Bun/Creatinine Ratio 16.5 (12.0-20.0); CO2, Blood 23 mmol/L (21-32); Calcium, Blood 9.3 mg/dL (8.5-10.1); Chloride, Blood 106 mmol/L (98-108); Creatinine, Blood 1.03 mg/dL (0.60-1.20); Globulin, Blood 3.4 g/dL (2.2-4.0); Glomerular Filtration Rate >60 (60-); Glucose, Blood 126 mg/dL (70-99); Potassium, Blood 3.6 mmol/L (3.5-5.5); Sodium, Blood 138 mmol/L (136-145); Total Protein, Blood 7.7 g/dL (6.4-8.2)
[2021-04-22 09:55] LABS: Source, Urine Clean Catch
[2021-04-22 10:28] LABS: Appearance, Urine Clear (Clear); Bilirubin, Urine Neg (Neg); Blood, Urine 5+ (Neg); Color, Urine Yellow (P-Yellow); Glucose Qualitative, Urine Neg (Neg); Ketones, Urine Neg (Neg); Leukocyte Esterase, Urine 1+ (Neg); Nitrite, Urine Neg (Neg); Protein, Urine 2+ (Neg); Urobilinogen, Urine NORM (Normal)
[2021-04-22 10:46] LABS: Bacteria Mod /hpf; Hyaline Casts 0-2 /lpf (0-2); Mucus Mod (0-Heavy); Squamous Epithelial Cells Rare /hpf (Few)
[2021-04-22 11:35] LABS: Adenovirus F 40/41 Not Detected (NOT DETECT); Astrovirus Not Detected (NOT DETECT); Campylobacter Sp Not Detected (NOT DETECT); Cryptosporidium Not Detected (NOT DETECT); Cyclospora Cayetanensis Not Detected (NOT DETECT); E. Coli O157 Not Detected (NOT DETECT); Entamoeba Histolytica Not Detected (NOT DETECT); Enteroaggregative E. coli-EAEC Not Detected (NOT DETECT); Enteropathogenic E. coli-EPEC Not Detected (NOT DETECT); Enterotoxigenic E. coli-ETEC Not Detected (NOT DETECT); Giardia Lamblia Not Detected (NOT DETECT); Norovirus GI/GII Not Detected (NOT DETECT); Plesiomonas Shigelloides Not Detected (NOT DETECT); Rotavirus A Not Detected (NOT DETECT); Salmonella Sp Not Detected (NOT DETECT); Sapovirus Not Detected (NOT DETECT); Shiga Toxin-prod E. coli-STEC Not Detected (NOT DETECT); Shigella/Enteroin E. coli-EIEC Not Detected (NOT DETECT); Vibrio Cholerae Not Detected (NOT DETECT); Vibrio Sp Not Detected (NOT DETECT); Yersinia Enterocolitica Not Detected (NOT DETECT)
[2021-04-22] MEDS ORDERED: Vancocin HCl125 MG PO (12:44)
[2021-04-22] MEDS ORDERED: VISBIOME 112.51 EACH PO (12:44)
[2021-04-22] MEDS ORDERED: SULTRIDS PO (12:44)
== END 2021-04-22 12:54 | disposition home or self-care (01) ==
LOC: ER 08:04
PROVIDERS: Student in an Organized Health Care Education/Training Program
DX: N20.0 Calculus of kidney (principal); K40.90 Unilateral inguinal hernia, without obstruction or gangrene, not specified as recurrent; N28.1 Cyst of kidney, acquired; K42.9 Umbilical hernia without obstruction or gangrene; A04.72 Enterocolitis due to Clostridium difficile, not specified as recurrent; N39.0 Urinary tract infection, site not specified; K76.0 Fatty (change of) liver, not elsewhere classified; I10 Essential (primary) hypertension; F12.90 Cannabis use, unspecified, uncomplicated; Z88.0 Allergy status to penicillin; Z79.01 Long term (current) use of anticoagulants
CPT/HCPCS: 0097U; 36415; 74176; 80053; 81001; 83690; 85025; 87086; 87324; 96374; 99284-25; A9270; J1885

== ENCOUNTER 2021-05-25 09:12 | Emergency (ER) | payer OTHER ==
[~2021-05-25] VITALS: Ht 157.5 cm; Wt 99.8 kg
[~2021-05-25 09:12] MED LIST changes: +VISBIOME 112.51 EACH PO; +Vancocin HCl125 MG PO
[2021-05-25 10:01] LABS: BASOPHILS ABSOLUTE AUTO 0.03 K/mm3 (0.00-0.23); BASOPHILS PERCENT AUTO 1 % (0-2); EOSINOPHILS ABSOLUTE AUTO 0.07 K/mm3 (0.00-0.68); EOSINOPHILS PERCENT AUTO 1 % (0-6); Hematocrit 47.2 % (37.0-53.0); Hemoglobin 16.9 g/dL (13.5-17.5); IMMATURE GRAN ABSOLUTE AUTO 0.02 K/mm3 (0.00-0.10); IMMATURE GRAN PERCENT AUTO 0 % (0-1); LYMPHOCYTES ABSOLUTE AUTO 1.51 K/mm3 (0.84-5.20); LYMPHOCYTES PERCENT AUTO 24 % (21-46); MONOCYTES ABSOLUTE AUTO 0.58 K/mm3 (0.16-1.47); MONOCYTES PERCENT AUTO 9 % (4-13); Mean Corpuscular HGB 32.6 pg (26.0-34.0); Mean Corpuscular HGB Conc 35.8 g/dL (31.5-36.5); Mean Corpuscular Volume 91 fL (80-100); Mean Platelet Volume 10.3 fL (9.1-12.4); NEUTROPHILS ABSOLUTE AUTO 4.08 K/mm3 (1.96-9.15); NEUTROPHILS PERCENT AUTO 65 % (41-73); Platelet Count 278 K/mm3 (150-400); RDW Coefficient Variation 11.6 % (11.7-14.2); RDW Standard Deviation 39.2 fL (35.1-46.3); Red Blood Cell Count 5.18 M/mm3 (4.30-5.90); White Blood Cell Count 6.29 K/mm3 (4.00-11.30)
[2021-05-25 10:38] LABS: Alanine Aminotransfer (ALT/SGP 59 U/L (12-78); Albumin, Blood 4.6 g/dL (3.4-5.0); Albumin/Globulin Ratio 1.4 (0.8-1.8); Alk Phos 82 U/L (50-136); Anion Gap 9 mmol/L (6-16); Aspartate Aminotrans (AST/SGOT 38 U/L (12-37); Bilirubin, Total 0.4 mg/dL (0.1-1.0); Blood Urea Nitrogen 17 mg/dL (8-24); Bun/Creatinine Ratio 16.8 (12.0-20.0); CO2, Blood 24 mmol/L (21-32); Calcium, Blood 9.5 mg/dL (8.5-10.1); Chloride, Blood 105 mmol/L (98-108); Creatinine, Blood 1.01 mg/dL (0.60-1.20); Globulin, Blood 3.2 g/dL (2.2-4.0); Glomerular Filtration Rate >60 (60-); Glucose, Blood 113 mg/dL (70-99); Sodium, Blood 138 mmol/L (136-145); Total Protein, Blood 7.8 g/dL (6.4-8.2)
[2021-05-25 11:24] LABS: Source, Urine Clean Catch
[2021-05-25 11:27] LABS: Bilirubin, Urine Neg (Neg); Blood, Urine 5+ (Neg); Glucose Qualitative, Urine Neg (Neg); Ketones, Urine Neg (Neg); Leukocyte Esterase, Urine 1+ (Neg); Nitrite, Urine Neg (Neg); Protein, Urine 2+ (Neg); Urobilinogen, Urine NORM (Normal)
[2021-05-25 11:32] LABS: Appearance, Urine Hazy (Clear); Color, Urine Pale Yellow (P-Yellow)
[2021-05-25 11:34] LABS: Bacteria Few /hpf; Mucus Light (0-Heavy); Squamous Epithelial Cells Few /hpf (Few)
[2021-05-25] MEDS ORDERED: CEFD300 PO (13:09)
[2021-05-25] MEDS ORDERED: HYDCHL25 PO (13:09)
[2021-05-25] MEDS ORDERED: TRAM50 PO (13:09)
== END 2021-05-25 14:08 | disposition home or self-care (01) ==
LOC: ER 09:12
PROVIDERS: Emergency Medicine
DX: N13.2 Hydronephrosis with renal and ureteral calculous obstruction (principal); N39.0 Urinary tract infection, site not specified; I10 Essential (primary) hypertension; Z79.2 Long term (current) use of antibiotics; Z79.899 Other long term (current) drug therapy; Z88.0 Allergy status to penicillin
CPT/HCPCS: 36415; 76770; 80053; 81001; 83690; 85025; 87086; 96374; 99284-25; A9270; J0360

== ENCOUNTER 2022-03-24 19:38 | Observation (INO) | payer OTHER ==
[~2022-03-24] VITALS: Ht 162.6 cm; Wt 108.9 kg
[~2022-03-24 19:38] MED LIST changes: +AMLODIPINE BESY10 MG PO; +ATOR40TA PO; +CEFD300 PO; +CELE100 PO; +Celexa20 MG PO; +GABA100 PO; +MIRT15ST PO; +ONDA4ODT MM; +OXYB5 PO; +PANTOPRAZOLE SO40 M2 PO; +XARELTO20 M1 PO
[2022-03-24 20:27] LABS: BASOPHILS ABSOLUTE AUTO 0.04 K/mm3 (0.00-0.23); BASOPHILS PERCENT AUTO 1 % (0-2); EOSINOPHILS ABSOLUTE AUTO 0.14 K/mm3 (0.00-0.68); EOSINOPHILS PERCENT AUTO 2 % (0-6); Hematocrit 41.6 % (37.0-53.0); Hemoglobin 14.7 g/dL (13.5-17.5); IMMATURE GRAN ABSOLUTE AUTO 0.01 K/mm3 (0.00-0.10); IMMATURE GRAN PERCENT AUTO 0 % (0-1); LYMPHOCYTES PERCENT AUTO 26 % (21-46); MONOCYTES ABSOLUTE AUTO 0.75 K/mm3 (0.16-1.47); MONOCYTES PERCENT AUTO 12 % (4-13); Mean Corpuscular HGB 32.7 pg (26.0-34.0); Mean Corpuscular HGB Conc 35.3 g/dL (31.5-36.5); Mean Corpuscular Volume 92 fL (80-100); Mean Platelet Volume 10.5 fL (9.1-12.4); NEUTROPHILS ABSOLUTE AUTO 3.58 K/mm3 (1.96-9.15); NEUTROPHILS PERCENT AUTO 58 % (41-73); Platelet Count 241 K/mm3 (150-400); RDW Coefficient Variation 13.1 % (11.7-14.2); RDW Standard Deviation 44.3 fL (35.1-46.3); White Blood Cell Count 6.12 K/mm3 (4.00-11.30)
[2022-03-24 20:45] LABS: Ethanol (Alcohol), Blood, Med <3 mg/dL; Free Thyroxine 0.68 ng/dL (0.70-1.60)
[2022-03-24 20:48] LABS: Salicylate 5.2 mg/dL (2.8-20.0)
[2022-03-24 20:50] LABS: Acetaminophen, Random <2.0 ug/mL (10.0-30.0); Alanine Aminotransfer (ALT/SGP 38 U/L (12-78); Albumin, Blood 4.2 g/dL (3.4-5.0); Albumin/Globulin Ratio 1.2 (0.8-1.8); Alk Phos 64 U/L (50-136); Anion Gap 10 mmol/L (6-16); Aspartate Aminotrans (AST/SGOT 31 U/L (12-37); Bilirubin, Total 0.5 mg/dL (0.1-1.0); Blood Urea Nitrogen 15 mg/dL (8-24); Bun/Creatinine Ratio 12.5 (12.0-20.0); CO2, Blood 22 mmol/L (21-32); Calcium, Blood 9.1 mg/dL (8.5-10.1); Chloride, Blood 110 mmol/L (98-108); Globulin, Blood 3.5 g/dL (2.2-4.0); Glomerular Filtration Rate 75 (60-); Glucose, Blood 112 mg/dL (70-99); Potassium, Blood 3.3 mmol/L (3.5-5.5); Sodium, Blood 142 mmol/L (136-145); Total Protein, Blood 7.7 g/dL (6.4-8.2)
[2022-03-24] MEDS ORDERED: GABA400 PO (20:56)
[2022-03-24] MEDS ORDERED: CELECOXIB 100 MG (20:56)
[2022-03-24] MEDS ORDERED: HYDCHL25 PO (20:57)
[2022-03-24 21:05] LABS: U Amphetamine Screen Not Detected; U Barbituate Screen Not Detected; U Benzodiazapine Screen DETECTED; U Buprenorphine Screen Not Detected; U Cannabinoids Screen DETECTED; U Cocaine Screen Not Detected; U Methadone Screen Not Detected; U Methamphetamine Screen Not Detected; U Opiates Screen Not Detected; U Oxycodone Screen Not Detected; U Phencyclidine Screen Not Detected; U Propoxyphene Screen Not Detected
[2022-03-24 21:13] LABS: Source, Urine Clean Catch
[2022-03-24 21:16] LABS: Bilirubin, Urine Neg (Neg); Blood, Urine 4+ (Neg); Color, Urine Yellow (P-Yellow); Glucose Qualitative, Urine Neg (Neg); Ketones, Urine Neg (Neg); Leukocyte Esterase, Urine 1+ (Neg); Nitrite, Urine Neg (Neg); Protein, Urine 3+ (Neg); Urobilinogen, Urine NORM (Normal)
[2022-03-24 21:30] LABS: Appearance, Urine Hazy (Clear); Mucus Mod (0-Heavy)
[2022-03-24 21:31] LABS: Squamous Epithelial Cells Rare /hpf (Few)
[2022-03-24 21:32] LABS: Bacteria Many /hpf; Red Blood Cells, Urine 25-50 /hpf (0-2)
[2022-03-24 22:02] LABS: Influenza A, PCR NEGATIVE (NEGATIVE); Influenza B, PCR NEGATIVE (NEGATIVE); Resp Syncytial Virus, PCR NEGATIVE (NEGATIVE); SARS-Cov-2 (COVID-19) PCR, MMC NEGATIVE (NEGATIVE)
--- NOTE | 2022-03-25 16:11 | NUR ---
Spiritual care visit conducted. Pt is in ER 24 and catches my eye. This municipal maintenance worker is familiar with pt from prior hospital so I visited with pt. He was immediately tearful and explained about how hopeless he feels, his last futile attempts to get help and his many medical, financial, mental and spiritual problems. He is emotional throughout our discussion. I provide therapeutic listening, gentle youth counselor, analysis and bolstering of coping skills and resouces and prayer. I also supply a hug which the pt responded by melting in my arms and sobbing. Pt responds well and shows signs of some increase of peace and hope. I will continue to remain available to patient and family.
[2022-03-26 23:12] LABS: Source, Urine Clean Catch
[2022-03-26 23:19] LABS: Appearance, Urine Hazy (Clear); Bilirubin, Urine Neg (Neg); Blood, Urine 5+ (Neg); Color, Urine Brown (P-Yellow); Glucose Qualitative, Urine Neg (Neg); Ketones, Urine Neg (Neg); Leukocyte Esterase, Urine 1+ (Neg); Nitrite, Urine Neg (Neg); Protein, Urine 3+ (Neg); Specific Gravity, Urine 1.025 (1.003-1.022); Urobilinogen, Urine NORM (Normal)
[2022-03-26 23:31] LABS: Bacteria Mod /hpf; Red Blood Cells, Urine 50-100 /hpf (0-2); Squamous Epithelial Cells Rare /hpf (Few)
== END 2022-03-28 23:51 ==
LOC: ER 19:38 → EOR 19:39
PROVIDERS: Emergency Medicine; ADMIT Student in an Organized Health Care Education/Training Program
DX: F33.9 Major depressive disorder, recurrent, unspecified (principal); T39.1X2A Poisoning by 4-Aminophenol derivatives, intentional self-harm, initial encounter; Z20.822 Contact with and (suspected) exposure to COVID-19; Z88.0 Allergy status to penicillin
CPT/HCPCS: 0241U; 36415; 80053; 81001; 84439; 84443; 85025; 87086; 93005; 93010; 96374; 99285-25; A9270; G0378; G0480; J1885; Q3014

== ENCOUNTER 2022-04-20 07:43 | Emergency (ER) | payer OTHER ==
[~2022-04-20] VITALS: Ht 162.6 cm; Wt 108.9 kg
[~2022-04-20 07:43] MED LIST changes: +CELECOXIB 100 MG; +GABA400 PO
[2022-04-20 08:20] LABS: BASOPHILS ABSOLUTE AUTO 0.04 K/mm3 (0.00-0.23); BASOPHILS PERCENT AUTO 1 % (0-2); EOSINOPHILS ABSOLUTE AUTO 0.09 K/mm3 (0.00-0.68); EOSINOPHILS PERCENT AUTO 1 % (0-6); Hematocrit 39.3 % (37.0-53.0); Hemoglobin 14.2 g/dL (13.5-17.5); IMMATURE GRAN ABSOLUTE AUTO 0.02 K/mm3 (0.00-0.10); IMMATURE GRAN PERCENT AUTO 0 % (0-1); LYMPHOCYTES ABSOLUTE AUTO 1.11 K/mm3 (0.84-5.20); LYMPHOCYTES PERCENT AUTO 18 % (21-46); MONOCYTES ABSOLUTE AUTO 0.59 K/mm3 (0.16-1.47); MONOCYTES PERCENT AUTO 9 % (4-13); Mean Corpuscular HGB 32.3 pg (26.0-34.0); Mean Corpuscular HGB Conc 36.1 g/dL (31.5-36.5); Mean Corpuscular Volume 90 fL (80-100); Mean Platelet Volume 10.2 fL (9.1-12.4); NEUTROPHILS PERCENT AUTO 71 % (41-73); Platelet Count 256 K/mm3 (150-400); RDW Standard Deviation 39.2 fL (35.1-46.3); Red Blood Cell Count 4.39 M/mm3 (4.30-5.90); White Blood Cell Count 6.25 K/mm3 (4.00-11.30)
[2022-04-20 08:40] LABS: Albumin, Blood 3.8 g/dL (3.4-5.0); Albumin/Globulin Ratio 1.2 (0.8-1.8); Bilirubin, Total 0.5 mg/dL (0.1-1.0); Calcium, Blood 9.3 mg/dL (8.5-10.1); Creatinine, Blood 1.15 mg/dL (0.60-1.20); Globulin, Blood 3.3 g/dL (2.2-4.0); Potassium, Blood 2.8 mmol/L (3.5-5.5); Total Protein, Blood 7.1 g/dL (6.4-8.2)
[2022-04-20 09:03] LABS: Source, Urine Clean Catch
[2022-04-20 09:17] LABS: Bilirubin, Urine Neg (Neg); Blood, Urine 5+ (Neg); Glucose Qualitative, Urine Neg (Neg); Ketones, Urine Neg (Neg); Leukocyte Esterase, Urine Neg (Neg); Nitrite, Urine Neg (Neg); Protein, Urine Neg (Neg); Specific Gravity, Urine 1.005 (1.003-1.022); Urobilinogen, Urine NORM (Normal)
[2022-04-20 09:24] LABS: Appearance, Urine Clear (Clear); Color, Urine Yellow (P-Yellow)
[2022-04-20 09:25] LABS: Bacteria Not Seen /hpf; Squamous Epithelial Cells Not Seen /hpf (Few); White Blood Cells, Urine Not Seen /hpf (0-5)
--- NOTE | 2022-04-20 10:45 | NUR ---
Patient immediately tells me about the pain that he is experiencing due to multiple stones that continue to move. He explains about how quickly the ER staff has responded and that the pain medications he has recieved have "taken the edge off" the pain. Patient talks about his Religious beliefs and how he has prayed often and with great urgency while he has been dealing with the medical issues. I provide therapeutic listening and prayer. Patient responds well and states that he has been very encouraged by the visit and asks that if he is admitted to the hospital that I would visit him again. I will cotmaxwellue to remain available to patient.
--- NOTE | 2022-04-20 10:52 | NUR ---
Spiritual care visit conducted. Upon recieving a referral for spiritual care, I visited the patient. He is sitting up in bed and has his "lady," Heike bedside. He explains about the events that led to his hospital admittance to the hospital and the plan for surgery today. He voices his frustration in the delay and his axiousness in waiting. I provide anxiety containment and prayer for peace, aid to the surgeon and a speedy, infection free recovery. Patient and Heike express their gratitude for the visit and the increased peace gained by it. I will vish to remain available to patient and family.
[2022-04-20] MEDS ORDERED: Ultram50 MG PO (11:45)
[2022-04-20] MEDS ORDERED: ONDA4ODT MM (11:45)
== END 2022-04-20 11:50 | disposition home or self-care (01) ==
LOC: ER 07:43
PROVIDERS: Emergency Medicine
DX: N20.0 Calculus of kidney (principal); N28.1 Cyst of kidney, acquired; I10 Essential (primary) hypertension; Z88.0 Allergy status to penicillin; Z79.02 Long term (current) use of antithrombotics/antiplatelets; Z79.899 Other long term (current) drug therapy; Z95.2 Presence of prosthetic heart valve
CPT/HCPCS: 36415; 51798; 76770; 80053; 81001; 85025; J1170; J1885; J2405

== ENCOUNTER → 2022-08-13 | Outpatient (CLI) | payer OTHER ==
[2022-08-13 16:55] LABS: Source, Urine Voided
[2022-08-13 17:39] LABS: Appearance, Urine Cloudy (Clear); Bilirubin, Urine Neg (Neg); Blood, Urine 5+ (Neg); Color, Urine Amber (P-Yellow); Glucose Qualitative, Urine Neg (Neg); Ketones, Urine 1+ (Neg); Leukocyte Esterase, Urine 2+ (Neg); Nitrite, Urine Pos (Neg); Protein, Urine 3+ (Neg); Specific Gravity, Urine 1.015 (1.003-1.022); Urobilinogen, Urine 1+ (Normal)
[2022-08-13 18:06] LABS: Bacteria Many /hpf; Red Blood Cells, Urine TNTC /hpf (0-2); Squamous Epithelial Cells Not Seen /hpf (Few)
== END | disposition home or self-care (01) ==
LOC: LAB 11:20 → LAB SHORT 11:20
PROVIDERS: Nurse Practitioner Family
DX: R30.0 Dysuria (principal)
CPT/HCPCS: 81001; 87086

== ENCOUNTER → 2022-10-29 | Outpatient (CLI) | payer OTHER ==
[~2022-10-29] MED LIST changes: +Aspir 8181 MG PO; +CELEBREX200 MG PO; +GEMF600 PO; +JANTOVEN5 M2 PO; +K-Dur20 MEQ PO; +Methocarbamol500 MG PO; +Prochlorperazin10 MG PO; +TAMS.4ER PO; +VIIBRYD40 MG PO; +VILAZODONE HCL40 MG PO; +WARF1 PO
[2022-10-29 10:59] LABS: International Normalized Ratio 1.36
== END | disposition home or self-care (01) ==
LOC: LAB 09:24 → RAD SHORT 09:24
PROVIDERS: Nurse Practitioner Family
DX: Z79.01 Long term (current) use of anticoagulants (principal); Z51.81 Encounter for therapeutic drug level monitoring; Z95.2 Presence of prosthetic heart valve
CPT/HCPCS: 36415; 85610

== ENCOUNTER 2022-11-03 22:30 | Emergency (ER) | payer OTHER ==
[~2022-11-03] VITALS: Ht 162.6 cm; Wt 116.1 kg
[2022-11-04 00:31] LABS: Source, Urine Clean Catch
[2022-11-04 00:34] LABS: Appearance, Urine Cloudy (Clear); Bilirubin, Urine Neg (Neg); Blood, Urine 5+ (Neg); Glucose Qualitative, Urine Neg (Neg); Ketones, Urine Neg (Neg); Leukocyte Esterase, Urine 3+ (Neg); Nitrite, Urine Neg (Neg); Protein, Urine 3+ (Neg); Urobilinogen, Urine NORM (Normal)
[2022-11-04 00:39] LABS: Color, Urine Brown (P-Yellow)
[2022-11-04 00:40] LABS: Red Blood Cells, Urine TNTC /hpf (0-2)
[2022-11-04 00:41] LABS: BASOPHILS ABSOLUTE AUTO 0.05 K/mm3 (0.00-0.23); BASOPHILS PERCENT AUTO 1 % (0-2); EOSINOPHILS ABSOLUTE AUTO 0.08 K/mm3 (0.00-0.68); EOSINOPHILS PERCENT AUTO 1 % (0-6); Hematocrit 36.3 % (37.0-53.0); Hemoglobin 12.6 g/dL (13.5-17.5); IMMATURE GRAN ABSOLUTE AUTO 0.01 K/mm3 (0.00-0.10); IMMATURE GRAN PERCENT AUTO 0 % (0-1); LYMPHOCYTES ABSOLUTE AUTO 1.02 K/mm3 (0.84-5.20); LYMPHOCYTES PERCENT AUTO 14 % (21-46); MONOCYTES ABSOLUTE AUTO 0.66 K/mm3 (0.16-1.47); MONOCYTES PERCENT AUTO 9 % (4-13); Mean Corpuscular HGB 31.5 pg (26.0-34.0); Mean Corpuscular HGB Conc 34.7 g/dL (31.5-36.5); Mean Corpuscular Volume 91 fL (80-100); Mean Platelet Volume 10.4 fL (9.1-12.4); NEUTROPHILS ABSOLUTE AUTO 5.35 K/mm3 (1.96-9.15); NEUTROPHILS PERCENT AUTO 75 % (41-73); Platelet Count 240 K/mm3 (150-400); RDW Coefficient Variation 12.8 % (11.7-14.2); RDW Standard Deviation 42.6 fL (35.1-46.3); White Blood Cell Count 7.17 K/mm3 (4.00-11.30)
[2022-11-04 00:42] LABS: Bacteria Many /hpf; Squamous Epithelial Cells Rare /hpf (Few)
[2022-11-04 00:58] LABS: Albumin, Blood 4.5 g/dL (3.4-5.0); Albumin/Globulin Ratio 1.5 (0.8-1.8); Bilirubin, Total 0.8 mg/dL (0.1-1.0); Bun/Creatinine Ratio 12.1 (12.0-20.0); Calcium, Blood 8.9 mg/dL (8.5-10.1); Creatinine, Blood 1.74 mg/dL (0.60-1.20); Globulin, Blood 3.1 g/dL (2.2-4.0); Potassium, Blood 3.4 mmol/L (3.5-5.5); Total Protein, Blood 7.6 g/dL (6.4-8.2)
[2022-11-04 04:32] VITALS: BP 145/108
== END 2022-11-04 04:30 | disposition short-term general hospital (02) ==
LOC: ER 22:30
PROVIDERS: Student in an Organized Health Care Education/Training Program
DX: N13.2 Hydronephrosis with renal and ureteral calculous obstruction (principal); N39.0 Urinary tract infection, site not specified; N17.9 Acute kidney failure, unspecified; I10 Essential (primary) hypertension; Z85.038 Personal history of other malignant neoplasm of large intestine; Z88.0 Allergy status to penicillin; Z79.82 Long term (current) use of aspirin; Z79.01 Long term (current) use of anticoagulants; Z79.899 Other long term (current) drug therapy
CPT/HCPCS: 74177; 80053; 81001; 83605; 85025; 87086; 96361; 96365-59; 96375; 96376; 99285-25; J0696; J1170; J1885; J2405; J7030; Q9967

== ENCOUNTER 2022-11-06 14:46 | Emergency (ER) | payer OTHER ==
[~2022-11-06] VITALS: Ht 162.6 cm; Wt 111.6 kg
[2022-11-06 15:03] VITALS: BP 181/116
[2022-11-06 15:37] LABS: BASOPHILS ABSOLUTE AUTO 0.05 K/mm3 (0.00-0.23); BASOPHILS PERCENT AUTO 1 % (0-2); EOSINOPHILS ABSOLUTE AUTO 0.09 K/mm3 (0.00-0.68); EOSINOPHILS PERCENT AUTO 1 % (0-6); Hemoglobin 12.9 g/dL (13.5-17.5); IMMATURE GRAN ABSOLUTE AUTO 0.02 K/mm3 (0.00-0.10); IMMATURE GRAN PERCENT AUTO 0 % (0-1); LYMPHOCYTES ABSOLUTE AUTO 1.45 K/mm3 (0.84-5.20); LYMPHOCYTES PERCENT AUTO 22 % (21-46); MONOCYTES ABSOLUTE AUTO 0.67 K/mm3 (0.16-1.47); MONOCYTES PERCENT AUTO 10 % (4-13); Mean Corpuscular HGB 31.5 pg (26.0-34.0); Mean Corpuscular HGB Conc 34.9 g/dL (31.5-36.5); Mean Corpuscular Volume 91 fL (80-100); Mean Platelet Volume 10.4 fL (9.1-12.4); NEUTROPHILS ABSOLUTE AUTO 4.31 K/mm3 (1.96-9.15); NEUTROPHILS PERCENT AUTO 65 % (41-73); Platelet Count 231 K/mm3 (150-400); RDW Coefficient Variation 12.9 % (11.7-14.2); RDW Standard Deviation 43.1 fL (35.1-46.3); Red Blood Cell Count 4.09 M/mm3 (4.30-5.90); White Blood Cell Count 6.59 K/mm3 (4.00-11.30)
[2022-11-06 15:57] LABS: Albumin, Blood 4.3 g/dL (3.4-5.0); Albumin/Globulin Ratio 1.3 (0.8-1.8); Bilirubin, Total 0.5 mg/dL (0.1-1.0); Bun/Creatinine Ratio 14.6 (12.0-20.0); Calcium, Blood 8.9 mg/dL (8.5-10.1); Creatinine, Blood 1.37 mg/dL (0.60-1.20); Globulin, Blood 3.2 g/dL (2.2-4.0); Potassium, Blood 3.3 mmol/L (3.5-5.5); Total Protein, Blood 7.5 g/dL (6.4-8.2)
[2022-11-06 16:26] LABS: Source, Urine Clean Catch
[2022-11-06 16:31] LABS: Appearance, Urine Bloody (Clear); Bilirubin, Urine Neg (Neg); Blood, Urine 5+ (Neg); Color, Urine Red (P-Yellow); Glucose Qualitative, Urine Neg (Neg); Ketones, Urine Neg (Neg); Leukocyte Esterase, Urine 2+ (Neg); Nitrite, Urine Neg (Neg); Protein, Urine 3+ (Neg); Urobilinogen, Urine NORM (Normal)
[2022-11-06 16:40] LABS: Red Blood Cells, Urine TNTC /hpf (0-2)
[2022-11-06 16:41] LABS: Bacteria Few /hpf; Squamous Epithelial Cells Not Seen /hpf (Few)
== END 2022-11-06 17:45 | disposition left against medical advice (07) ==
LOC: ER 14:46
PROVIDERS: Physician Assistant
DX: R10.32 Left lower quadrant pain (principal); F91.8 Other conduct disorders; I10 Essential (primary) hypertension; Z79.82 Long term (current) use of aspirin; Z79.01 Long term (current) use of anticoagulants; Z79.899 Other long term (current) drug therapy
CPT/HCPCS: 76770; 80053; 81001; 85025; 87086; 99283-25